=== PATIENT | female | born 1975 | race Caucasian/White ===

== ENCOUNTER → 2021-08-05 14:07 | Outpatient (BNVA) | payer BC, SELFPAY | PROVIDERS: Family Provider Nurse Practitioner Family; PCP Nurse Practitioner Family; Referring Provider Nurse Practitioner Family; Visit Provider Specialist | DX: M25.561 Pain in right knee (principal) | CPT/HCPCS: 73560; 73565 ==

== ENCOUNTER 2021-08-05 15:20 | Outpatient (CLI) | payer BC, SELFPAY | END 2021-08-05 15:21 | disposition home or self-care (01) | LOC: SPT 15:20 | PROVIDERS: Family Provider Nurse Practitioner Family; PCP Nurse Practitioner Family; Visit Provider Specialist | DX: Z46.89 Encounter for fitting and adjustment of other specified devices (principal); M25.561 Pain in right knee | CPT/HCPCS: 97760; L1812 ==

== ENCOUNTER 2022-07-16 07:03 | Outpatient (CLI) | payer OTHER, SELFPAY ==
--- NOTE | 2022-07-16 07:21 | MR_ITS ---
WS: [id number] MRI LUMBAR SPINE NONCONTRAST TECHNIQUE: Sagittal T1, T2 and STIR imaging. Axial T1 and T2 imaging. CLINICAL INFORMATION: CHRONIC LOW BACK PAIN COMPARISON: None. FINDINGS: Mild lumbar curve. No acute compression. Slight anterolisthesis L4 on L5. Tarlov cyst in the sacrum. L1-L2: Normal. L2-L3: Normal. L3-L4: Mild annular bulging with slight effacement of ventral thecal sac. Mild facet arthropathy. Spi nal canal and foramen are patent. L4-L5: Slight anterolisthesis. Mild disc bulging with osteophytic ridging. Moderate facet arthropathy ligamentum flavum hypertrophy. Moderate to severe central canal stenosis impinges the traversing L5 nerve roots bilaterally. Mild RIGHT foraminal narrowing. LEFT foramen is patent. L5-S1: Disc osteophyte complex with endplate ridging. Impingement traversing LEFT S1 nerve root. Fora men are patent. Mild facet arthropathy. Edema or small hemangioma in the RIGHT L5 pedicle. Mild central canal stenosis in the district sales manager imaging at C3-C5. MR/MR lumbar spine wo con* [id number] IMPRESSION: 1. Slight anterolisthesis L4 on L5. Moderate to severe central canal stenosis with mild disc bulging and osteophytic ridging. Moderate facet arthropathy with ligamentum flavum hypertrophy contribute to stenosis. 2. Mild RIGHT L4-L5 foraminal narrowing. 3. Mild annular bulging L3-L4. 4. Disc bulge L5-S1 impinges the traversing LEFT S1 nerve root in the subartic ular recess. 5. Mild central canal stenosis in the mid cervical spine on the district sales manager imaging.
== END 2022-07-16 07:04 | disposition home or self-care (01) ==
LOC: RAD 07:04
PROVIDERS: Family Provider Nurse Practitioner Family; PCP Nurse Practitioner Family; Visit Provider Nurse Practitioner Family
DX: G89.29 Other chronic pain (principal); M48.02 Spinal stenosis, cervical region; M51.27 Other intervertebral disc displacement, lumbosacral region; M51.26 Other intervertebral disc displacement, lumbar region; M48.061 Spinal stenosis, lumbar region without neurogenic claudication
CPT/HCPCS: 72148

== ENCOUNTER 2022-09-19 09:26 | Day surgery (SDC) | payer OTHER, SELFPAY ==
[2022-09-16 09:20] VITALS: BMI 31.1
--- NOTE | 2022-09-16 09:45 | P.ANESASSM_ITS ---
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) Anesthetic Plan ASA status: 3 Anesthesia: General Risk of > 500 ml blood loss (7ml/kg in children): No Medications/Allergies Home Medications Medication Instructions Recorded Confirmed Last Taken Type azelastine 137 mcg (0.1 %) nasal 1 spray intranasal BID 12/17/20 09/16/22 09/16/22 History spray aerosol fluticasone propionate 50 1 spray intranasal DAILY 12/17/20 09/16/22 09/16/22 History mcg/actuation nasal spray,suspension levocetirizine 5 mg tablet (Xyzal) 5 mg PO .twice daily 12/17/20 09/16/22 09/16/22 History hinged knee brace #1 ea 08/05/21 09/02/22 Unknown Rx cholecalciferol (vitamin D3) 125 125 mcg PO DAILY 09/16/22 09/16/22 09/16/22 History mcg (5,000 unit) tablet (Vitamin D3) cranberry 400 mg capsule 400 mg PO DAILY 09/16/22 09/16/22 09/16/22 History elderberry fruit 200 mg capsule 200 mg PO DAILY 09/16/22 09/16/22 09/16/22 History esomeprazole magnesium 40 mg 40 mg PO DAILY 09/16/22 09/16/22 09/16/22 History capsule,delayed release (Nexium) glucosamine sulfate 500 mg tablet 500 mg PO DAILY 09/16/22 09/16/22 09/16/22 History (Glucosamine) meloxicam 15 mg tablet 15 mg PO DAILY 09/16/22 09/16/22 09/11/22 History omega 2-owf-glt-fish oil 1,000 mg 1 cap PO DAILY 09/16/22 09/16/22 09/12/22 History (120 mg-180 mg) capsule (Fish Oil) sertraline 25 mg tablet 25 mg PO DAILY 09/16/22 09/16/22 09/16/22 History Allergies Allergy/AdvReac Type Severity Reaction Status Date / Time acetaminophen [From Vicodin] Allergy ADR-Headach Verified 09/02/22 16:15 e cephalexin [From Keflex] Allergy Unknown Verified 09/02/22 15:23 doxycycline Allergy unknown Verified 09/02/22 15:23 hydrocodone [From Vicodin] Allergy ADR-Headach Verified 09/02/22 16:15 e tramadol [From Ultram] Allergy unknown Verified 09/02/22 15:23 [facility] Anesthesia Medical History (Updated 09/02/22 @ 17:23 by Alban Mccord DO) Environmental allergies Social History Smoking and tobacco status: never smoked Data Anesthesia Cardiac Studies: No Data to Display
[2022-09-19] VITALS (10 sets, daily range): BP systolic 117–158; BP diastolic 76–93; PULSE 82–108; RESP 13–19; TEMP 36.3–36.6; O2SAT 93–100
--- NOTE | 2022-09-19 | XR_ITS ---
WS: [id number] Lumbar spine, C-arm fluoroscopy, 09/19/2022 Clinical Data: Left sided L3-4, L4-5, L5-S1 decompression Comparison: None. Findings: Dr. Mccord performed a lumbar decompression XR/XR lumbar spine 1V [id number] Impression: Lumbar decompression.
--- NOTE | 2022-09-19 09:44 | P.ANESUD_ITS ---
Pre-Anesthetic Update Pre-Anesthetic Assessment: Date of Surgery/Procedure: 09/19/22 Preop Jeana gnosis: Stenosis with neurogenic claudication Proposed Procedure: Operation Date: 09/19/22 10:50 Proposed Procedures p Lumbar Spine Decompression L3/4 L4/5 L5/S1 M48.062Dr. Mccord to stand on LEFT(Not Applicable) - Alban Mccord, DO Any changes to Pre-Anesthetic Assessment?: No Last Intake: > 8hrs Exam: Pre-Anes Outpt Exam: alert, oriented x 3, clear to auscultation bilaterally and regular rate & rhythm Cardiac Studies: No Data to Display
[2022-09-19] MEDS: sodium chloride 0.9% 1,000 ML 30 ML IV (09:57)
[2022-09-19] MEDS: midazolam 1 mg/mL INJ 2 mL 2 MG IVP (10:57)
--- NOTE | 2022-09-19 10:58 | W.PM.OPSUD ---
Surgery/Procedure H&P Update DATE OF PROCEDURE: September 19, 2022 DATE H&P PERFORMED: 09/02/22 H&P UPDATE INFORMATION: I have reviewed H&P completed within last 30 days, I have examined patient prior to procedure and No changes to prior documentation PREOP DIAGNOSIS: Stenosis with neurogenic claudication PLANNED PROCEDURE: Operation Date: 09/19/22 10:50 Proposed Procedures p Lumbar Spine Decompression L3/4 L4/5 L5/S1 M48.062Dr. Mccord to stand on LEFT(Not Applicable) - Alban Mccord DO
[2022-09-19] MEDS: clindamycin 900 MG/50 ML PREMIX 100 MG IV (11:17)
[2022-09-19] MEDS: fentaNYL 50 mcg/mL INJ 2mL IVP (13:23)
--- NOTE | 2022-09-19 13:59 | P.OP_ITS ---
Operative Report Date of procedure: September 19, 2022 Pre-op diagnosis: Preop Diagnosis Stenosis with neurogenic claudication Post-op diagnosis: same Procedure done: 1. L3/4 laminectomy with partial facetectomy 2. L4/5 Laminectomy with partial facetectomy 3. L5/S1 laminectomy with partial facetectomy Surgeon: Alban Mccord Estimated blood loss (mL): 10 Procedure: 1. L3/4 laminectomy with partial facetectomy 2. L4/5 Laminectomy with partial facetectomy 3. L5/S1 laminectomy with partial facetectomy Patient is brought to the operative suite. After undergoing anesthesia they are placed in the prone position. All areas of impingement are well padded. Patient is then prepped and draped in the normal sterile fashion. A skin incision is made over the L3/4 level. This is confirmed under c-arm jong dance. A series of dilators are passed and the tubular retractor is docked on the L3 lamina. A bovie is used to clear the soft tissue off the lamina and the L 3/4 facet joint. A high speed zenaida is then used to perform the laminectomy and take down the medial aspect of the L 3/4 facet joint. A kerrison rongeure was then used to take down the remaining lamina and smooth the edged of the laminectomy up to the point where the ligamentum flavum attaches. Attention was then brought to the medial aspect of the facet joint. The remaining medial aspect of the superior and inferior aspect of the facet joint were taken down with the kerrison from the pedicle of L3 to L 4. The facet joint had significant hypertrophy. Attention was then brought to the Ligamentum Flavum. The ligament was taken do wn from the lamina of L3 to L4 and out medially to the remaining facet joint. The ligament was thick. The dura was then exposed. The dura was in good repair. The L3 nerve was then traced with a curette out the L3/4 foramen and found to be adequately decompressed. The L4 nerve was traced with a curette around the L4 pedicle. The lateral recess was opened with a kerrison helping to further dec ompress the L4 nerve. The tubular retractor was then tilted to the contralateral side. The bovie was used to take down the soft tissue on the spinous process. The high speed zenaida was used to take down the spinous process and then the contralateral lamina of L3. The kerrison rongeur was used to take down the remaining lamina to the point where the ligamentum flavum attached and the ligamentum flavum was taken down from L3 to L4. The kerrison rongeur was then used to reach across and take down the medial aspect of the contralateral L3/4 facet joint.The currete was used to trace the contralateral L3 nerve out the L3/4 foramen to make sure it was decompressed adequatesly and the L4 was traced around the L4 pedicle. The lateral recess was opened further with the kerrison to ensure the L4 is adequately decompressed. A skin incision is made over the L4/5 level. This is confirmed under c-arm guidance. A series of dilators are passed and the tubular retractor is docked on the L4 lamina. A bovie is used to clear the soft tissue off the lamina and the L 4/5 facet joint. A high speed zenaida is then used to perform the laminectomy and take down the medial aspect of the L 4/5 facet joint. A kerrison rongeure was then used to take down the remaining lamina and smooth the edged of the laminectomy up to the point where the ligamentum flavum attaches. Attention was then brought to the medial aspect of the facet joint. The remaining medial aspect of the superior and inferior aspect of the facet joint were taken down with the kerrison from the pedicle of L4 to L 5. The facet joint had significant hypertrophy. Attention was then brought to the Ligamentum Flavum. The ligament was taken down from the lamina of L4 to L5 and out medially to the remaining facet joint. The ligament was thick. The dura was then exposed. The dura was in good repair. The L4 nerve was then traced with a curette out the L4/5 foramen and found to be adequately decompressed. The L5 nerve was traced with a curette around the L5 pedicle. The lateral recess was opened with a kerrison helping to further decompress the L5 nerve. The tubular retractor was then tilted to the contralateral side. The bovie was used to take down the soft tissue on the spinous process. The high speed zenaida was used to take down the spinous process and then the contralateral lamina of L4/5. The kerrison rongeur was used to take down the remaining lamina to the point where the ligamentum flavum attached and the ligamentum flavum was taken down from L5 to S1. The kerrison rongeur was then used to reach across and take down the medial aspect of the contralateral L4/5 facet joint.The currete was used to trace the contralateral L4 nerve out the L4/5 foramen to make sure it was decompressed adequatesly and the L was traced around the L5 pedicle. The lateral recess was opened further with the kerrison to ensure the L5 is adequately decompressed. A skin incision is made over the L5/S1 level. This is confirmed under c-arm guidance. A series of dilators are passed and the tubular retractor is docked on the L5 lamina. A bovie is used to clear the soft tissue off the lamina and the L 5/S1 facet joint. A high speed zenaida is then used to perform the laminectomy and take down the medial aspect of the L 5/S1 facet joint. A kerrison rongeure was then used to take down the remaining lamina and smooth the edged of the laminectomy up to the point where the ligamentum flavum attaches. Attention was then brought to the medial aspect of the facet joint. The remaining medial aspect of the superior and inferior aspect of the facet joint were taken down with the kerrison from the pedicle of L5 to S1. The facet joint had significant hypertrophy. Attention was then brought to the Ligamentum Flavum. The ligament was taken down from the lamina of L5 to S1 and out medially to the remaining facet joint. The ligament was thick. The dura was then exposed. The dura was in good repair. The L5 nerve was then traced with a curette out the L5/S1 foramen and found to be adequately decompressed. The S1 nerve was traced with a curette around the S1 pedicle. The lateral recess was opened with a kerrison helping to further decompress the S1 nerve. The tubular retractor was then tilted to the contralateral side. The bovie was used to take down the soft tissue on the spinous process. The high speed zenaida was used to take down the spinous process and then the contralateral lamina of L5. The kerrison rongeur was used to take down the remaining lamina to the point where the ligamentum flavum attached and the ligamentum flavum was taken down from L5 to S1. The kerrison rongeur was then used to reach across and take down the medial aspect of the contralateral L5/S1 facet joint.The currete was used to trace the contralateral L5 nerve out the L5/S1 foramen to make sure it was decompressed adequatesly and the S1 was traced around the S1 pedicle. The lateral recess was opened further with the kerrison to ensure the S1 is adequately decompressed. Wound is then irrigated copiously with saline and surgiflo is used to stop any bleeding. The tubular retractor is removed and the wound is closed with vicryl and monocryl suture. Glue is then used to protect the wound. A sterile dressing is then placed. Patient was then placed in the supine position and transferred to the PACU in stable condition.
[2022-09-19] MEDS: oxyCODONE-APAP 5-325 mg Tablet PO (14:04)
[2022-09-19] MEDS: ondansetron 2 mg/ML SDV 2 mL 4 MG IVP (14:31)
--- NOTE | 2022-09-19 14:39 | ANE.PACU2 ---
Inpatient post-anesthesia follow up: Airway intact: Yes Vital signs: Temperature 97.8 F Pulse Rate 85 Respiratory Rate 16 Blood Pressure 138/93 Pulse Oximetry 94 Oxygen Delivery Me thod Room Air Oxygen Flow Rate 10 Fraction of Inspir ed Oxygen Hydration adequate: Yes Nausea and vomiting: No Pain level: 1 Mental status: Baseline
== END 2022-09-19 15:00 | disposition home or self-care (01) ==
PROVIDERS: PCP Nurse Practitioner Family; Visit Provider Orthopaedic Surgery
PROC: (CPT 63005; principal; 2022-09-19 10:40)
DX: M48.062 Spinal stenosis, lumbar region with neurogenic claudication (principal); K21.9 Gastro-esophageal reflux disease without esophagitis; Z86.73 Personal history of transient ischemic attack (TIA), and cerebral infarction without residual deficits
CPT/HCPCS: 63047; 63048 ×2; 72020; 76000; J1100; J2250; J2405; J2704; J2710; J3010; J3490; J7030

== ENCOUNTER → 2022-10-09 09:13 | Outpatient (BNVA) | payer OTHER, SELFPAY | PROVIDERS: PCP Nurse Practitioner Family; Visit Provider Physician Assistant | DX: M48.061 Spinal stenosis, lumbar region without neurogenic claudication (principal); M48.07 Spinal stenosis, lumbosacral region; M47.816 Spondylosis without myelopathy or radiculopathy, lumbar region; S33.140A Subluxation of L4/L5 lumbar vertebra, initial encounter; X58.XXXA Exposure to other specified factors, initial encounter | CPT/HCPCS: 72110 ==

== ENCOUNTER 2022-10-14 09:43 | Outpatient (CLI) | payer OTHER, SELFPAY ==
--- NOTE | 2022-10-14 10:15 | MR_ITS ---
WS: [id number] MRI LUMBAR SPINE NONCONTRAST HISTORY: post op pain, surgery 3 weeks ago. COMPARISON: 07/16/2022 TECHNIQUE: Sagittal and axial multisequence imaging is submitted. Mild degenerative changes in the cervical spine. Increase in thoracic kyphosis. No change in the 2 mm anterolisthesis of L4. Disc spaces are preserved with only mild desiccation. Conus terminates normally at L1. New postsurgical soft tissue changes are noted at L3-4, L4-5 and L5-S1. Soft tissue changes are noted on the LEFT from prior laminectomies and partial facetectomies. L1-L2: Normal. L2-L3: Normal. L3-L4: Mild disc bulging with effacement of the ventral thecal sac. Mild facet arthritis. Small LEFT hemilaminectomy defect. L4-L5: Moderate annular disc bulging. Postoperative LEFT hemilaminectomy defect. Partial resolution o f the central stenosis due to laminectomy defect. New increased fluid in the facet joints bilaterally and postoperative edema along the facetectomy site. There is mild central and subarticular recess en croachment. L5-S1: Diffuse annular disc bulging. Osteophytic ridging. Disc protrusion LEFT paracentral encroaches on the LEFT S1 nerve root. Similar to the prior study. Recent postoperative LEFT hemilaminectomy def ect with partial facetectomy. Increased T2 signal in the nerve roots posterior to L5. Indistinctness and thickening of the nerve ro ots. 3 mm area of decreased signal on the T1 and T2 sequences along the surgical tract at L5-S1. Very low signal on the T1 sequences. Unknown etiology. Small amount of edema in the soft tissues along the posterior lumbar region. No focal collection. Sac ral Tarlov cyst at S2. MR/MR lumbar spine wo con* [id number] IMPRESSION: 1. Since the prior examination of 07/16/2022 patient has undergone LEFT hemila minectomies at L3-4, L4-5 and L5-S1 with partial facetectomy' s. Postoperative changes appear appropriate. This study was performed without IV contrast. 2. Partial resolution of the stenosis at L4-5 due to the surgical changes. 3. Increased T2 signal involving the nerve roots posterior to L5. Consistent w ith radiculitis.
== END 2022-10-14 09:44 | disposition home or self-care (01) ==
LOC: RAD 09:46
PROVIDERS: PCP Nurse Practitioner Family; Visit Provider Physician Assistant
DX: Z98.890 Other specified postprocedural states (principal); M48.061 Spinal stenosis, lumbar region without neurogenic claudication; M54.50 Low back pain, unspecified
CPT/HCPCS: 72148

== ENCOUNTER → 2022-11-25 10:46 | Outpatient (BNVA) | payer OTHER, SELFPAY | PROVIDERS: PCP Registered Nurse; Visit Provider Registered Nurse | DX: R60.0 Localized edema (principal) | CPT/HCPCS: 80053; 83880 ==

== ENCOUNTER 2022-12-03 13:59 | Inpatient (IN) | payer OTHER, SELFPAY ==
[2022-11-27 10:32] VITALS: BMI 31.6
--- NOTE | 2022-11-27 10:57 | ANES.PREANE2 ---
Pre-Anesthetic Assessment Height/Weight: Height 1.7 m Weight 91.626 kg Preop Diagnosis: Stenosis with neurogenic claudication Operation Date: 12/03/22 10:00 Proposed Procedures p Spinal Fusion:L3-S1 fusion w decompession of RT Side/[id number],38383,89375,M48.062(Right) - Alban Mccord DO s Lumbar Spine Decompression(Right) - Alban Mccord DO Familial anesthetic complications: None Social Tobacco and No alcohol Exam alert, oriented x 3, clear to auscultation bilaterally and regular rate & rhythm Airway Mallampati: Class III Dentition: other (missing) Pulmonary None reported CV/HEM None reported None reported Hepatic None reported GI None reported Musc/skel Osteoarthritis/DJD Neuropsych Cerebrovascular Accident ((hormone + tobacco) - No residual deficits) Anesthetic Plan ASA status: 2 Anesthesia: General Other: A-line Risk of > 500 ml blood loss (7ml/kg in children): Yes, adequate IV access and fluids planned Medications/Allergies Home Medications Medication Instructions Recorded Confirmed Last Taken Type azelastine 137 mcg (0.1 %) nasal 1 spray intranasal BID 12/17/20 11/27/22 1 Day Ago History spray aerosol ~11/26/22 fluticasone propionate 50 1 spray intranasal DAILY 12/17/20 11/27/22 1 Day Ago History mcg/actuation nasal ~11/26/22 spray,suspension levocetirizine 5 mg tablet (Xyzal) 5 mg PO .twice daily 12/17/20 11/27/22 1 Day Ago History ~11/26/22 hinged knee brace #1 ea 08/05/21 11/25/22 Unknown Rx cholecalciferol (vitamin D3) 125 125 mcg PO DAILY 09/16/22 11/27/22 1 Day Ago History mcg (5,000 unit) tablet (Vitamin ~11/26/22 D3) cranberry 400 mg capsule 400 mg PO DAILY 09/16/22 11/27/22 1 Day Ago History ~11/26/22 elderberry fruit 200 mg capsule 200 mg PO DAILY 09/16/22 11/27/22 1 Day Ago History ~11/26/22 esomeprazole magnesium 40 mg 40 mg PO DAILY 09/16/22 11/27/22 1 Day Ago History capsule,delayed release (Nexium) ~11/26/22 glucosamine sulfate 500 mg tablet 500 mg PO DAILY 09/16/22 11/27/22 1 Day Ago History (Glucosamine) ~11/26/22 meloxicam 15 mg tablet 15 mg PO DAILY 09/16/22 11/27/22 1 Day Ago History ~11/26/22 omega 1-smf-wql-fish oil 1,000 mg 1 cap PO DAILY 09/16/22 11/27/22 1 Month Ago History (120 mg-180 mg) capsule (Fish Oil) ~10/27/22 sertraline 25 mg tablet 25 mg PO DAILY 09/16/22 11/27/22 1 Day Ago History ~11/26/22 gabapentin 300 mg tablet 300 mg PO TID 09/19/22 11/27/22 1 Day Ago History ~11/26/22 oxycodone-acetaminophen 5 mg-325 1 tab PO Q4H PRN pain 7 days #40 11/06/22 11/27/22 1 Day Ago Rx mg tablet (Percocet) tabs ~11/26/22 Bone Growth Stimulator E0748 #1 ea 11/20/22 11/25/22 Unknown Rx Intraoperative Neuromonitoring #1 ea 11/20/22 11/25/22 Unknown Rx oxycodone 10 mg tablet 10 mg PO Q6H PRN pain 7 days #40 11/20/22 11/27/22 1 Day Ago Rx tabs ~11/26/22 furosemide 20 mg tablet (Lasix) 10 mg PO DAILY 30 days #15 tabs 11/25/22 11/27/22 1 Day Ago Rx ~11/26/22 potassium chloride 8 mEq 8 meq PO DAILY 30 days #30 tabs 11/25/22 11/27/22 1 Day Ago Rx tablet,extended release (Klor-Con) ~11/26/22 Allergies Allergy/AdvReac Type Severity Reaction Status Date / Time acetaminophen [From Vicodin] Allergy ADR-Headach Verified 11/27/22 10:23 e cephalexin [From Keflex] Allergy Unknown Verified 11/27/22 10:23 doxycycline Allergy unknown Verified 11/27/22 10:23 hydrocodone [From Vicodin] Allergy ADR-Headach Verified 11/27/22 10:23 e tramadol [From Ultram] Allergy unknown Verified 11/27/22 10:23 PFSH Anesthesia Medical History Environmental allergies Family History Grandmother Dementia Cancer lung Father Hypertension Grandmother Hypertension Denies family history of Diabetes CAD (coronary artery disease) Chronic kidney disease (CKD) Lung disease Stroke Social History (Updated 11/25/22 @ 10:15 by Nichole Cameron LPN) Smoking and tobacco status: current every day smoker cigarettes Packs smoked per day: 1 Alcohol intake: never Substance/Drug Use: never Adopted: No Caregiver/support person: No Lives independently: No Household members: spouse Marital status: service: No Current occupational status: unemployed and disabled Sexually active: Yes Current gender identity: Female Data Anesthesia Cardiac Studies: No Data to Display
[2022-12-03] VITALS (33 sets, daily range): BP systolic 89–133; BP diastolic 59–92; PULSE 85–108; RESP 16–18; TEMP 36.1–36.6; O2SAT 89–98; BMI 33.7
--- NOTE | 2022-12-03 | XR_ITS ---
WS: [id number] XR lumbar spine 1V [id number] REASON FOR EXAM: OR PICS FINDINGS: Intraoperative lumbar spine images Posterior decompression with posterior pedicle screw placement at L2-S1 with oblique pelvic screws at S2. Interbody fusion devices at L4-L5 and L5-S1. Surgical appliances are in proper position and alignment. XR/XR lumbar spine 1V [id number] IMPRESSION: Posterior lumbar fusion without abnormality as above.
[2022-12-03] MEDS: sodium chloride 0.9% 1,000 ML 30 ML IV (09:06)
[2022-12-03] MEDS: midazolam 1 mg/mL INJ 2 mL 2 MG IVP (09:15)
--- NOTE | 2022-12-03 09:23 | PM.HP ---
Providers/Chief Complaint Primary Care Provider: RITA Delgado Chief Complaint: T4-O0-snquip w decompression of the RT side [id number], History of Present Illness Princess Tobar is a 47 year old female She rates her pain 7/10 today with pain to her low back and travels into the posterior legs and feet with the left being worse today. Her pain is aggravated by standing or sitting for long periods,alleviated by laying on her left side. She does note improvement to her sleep patters since her last visit. She also describes pain with activity of daily living including light housekeeping. She has been taking meloxicam without any relief.? L3/4 L4/5 L5/S1 laminectomoty with partial facetectomy. DOS: 09/19/22 She is 5 weeks out from her surgery. She states the first 2 weeks following her surgery she had some relief and feels she is significantly worse. Review of Systems Const: Denies: fever(s) or fatigue Card: Denies: palpitations, edema, lightheadedness, syncope, pre-syncope, dyspnea on exertion or orthopnea Resp: Denies: dyspnea, productive cough, non-productive cough or wheezing GI: Denies: nausea, early satiety, hematochezia or melena : Denies: dysuria or nocturia Neuro: Denies: headache(s), dizziness, confusion or Slurred speech present Medications/Allergies Home Medications Medication Instructions Recorded Confirmed Last Taken Type azelastine 137 mcg (0.1 %) nasal 1 spray intranasal BID 12/17/20 11/27/22 12/02/22 History spray aerosol fluticasone propionate 50 1 spray intranasal DAILY 12/17/20 11/27/22 12/02/22 History mcg/actuation nasal spray,suspension levocetirizine 5 mg tablet (Xyzal) 5 mg PO .twice daily 12/17/20 11/27/22 12/03/22 History hinged knee brace #1 ea 08/05/21 11/25/22 Unknown Rx cholecalciferol (vitamin D3) 125 125 mcg PO DAILY 09/16/22 11/27/22 12/02/22 History mcg (5,000 unit) tablet (Vitamin D3) cranberry 400 mg capsule 400 mg PO DAILY 09/16/22 11/27/22 12/01/22 History elderberry fruit 200 mg capsule 200 mg PO DAILY 09/16/22 11/27/22 12/01/22 History esomeprazole magnesium 40 mg 40 mg PO DAILY 09/16/22 11/27/22 12/03/22 History capsule,delayed release (Nexium) glucosamine sulfate 500 mg tablet 500 mg PO DAILY 09/16/22 11/27/22 12/01/22 History (Glucosamine) meloxicam 15 mg tablet 15 mg PO DAILY 09/16/22 11/27/22 1 Day Ago History ~11/26/22 omega 1-rkw-gbm-fish oil 1,000 mg 1 cap PO DAILY 09/16/22 11/27/22 1 Month Ago History (120 mg-180 mg) capsule (Fish Oil) ~10/27/22 sertraline 25 mg tablet 25 mg PO DAILY 09/16/22 11/27/22 12/03/22 History gabapentin 300 mg tablet 300 mg PO TID 09/19/22 11/27/22 12/03/22 History oxycodone-acetaminophen 5 mg-325 1 tab PO Q4H PRN pain 7 days #40 11/06/22 11/27/22 1 Day Ago Rx mg tablet (Percocet) tabs ~11/26/22 Bone Growth Stimulator [id number] #1 ea 11/20/22 11/25/22 Unknown Rx Intraoperative Neuromonitoring #1 ea 11/20/22 11/25/22 Unknown Rx oxycodone 10 mg tablet 10 mg PO Q6H PRN pain 7 days #40 11/20/22 11/27/22 12/03/22 Rx tabs furosemide 20 mg tablet (Lasix) 10 mg PO DAILY 30 days #15 tabs 11/25/22 11/27/22 11/04/22 Rx potassium chloride 8 mEq 8 meq PO DAILY 30 days #30 tabs 11/25/22 11/27/22 12/03/22 Rx tablet,extended release (Klor-Con) Allergies Allergy/AdvReac Type Severity Reaction Status Date / Time cephalexin [From Keflex] Allergy Unknown Verified 11/27/22 10:23 doxycycline Allergy unknown Verified 11/27/22 10:23 hydrocodone [From Vicodin] Allergy ADR-Headach Verified 11/27/22 10:23 e tramadol [From Ultram] Allergy unknown Verified 11/27/22 10:23 PFSH Acute PFSH: Medical History Environmental allergies Family History Grandmother Dementia Cancer lung Father Hypertension Grandmother Hypertension Denies family history of Diabetes CAD (coronary artery disease) Chronic kidney disease (CKD) Lung disease Stroke Social History (Updated 11/25/22 @ 10:15 by Nichole Cameron LPN) Smoking and tobacco status: current every day smoker cigarettes Packs smoked per day: 1 Alcohol intake: never Adopted: No Caregiver/support person: No Lives independently: No Household members: spouse Marital status: service: No Current occupational status: unemployed and disabled Sexually active: Yes Current gender identity: Female Vitals/I&O/Wt Last Vital Signs Temp 97.8 F 12/03/22 09:02 Pulse 89 12/03/22 09:02 Resp 18 12/03/22 09:02 BP 120/87 12/03/22 09:02 Pulse Ox 95 12/03/22 09:02 O2 Del Method 12/03/22 09:02 Physical Exam Narrative: CONSTITUTIONAL: The patient is a normal appearing [] in no apparent distress. GENERAL: Patient in no acute distress. CARDIAC: Regular rate and rhythm. CHEST: Normal inspiratory effort, normal respiratory rate. ABDOMEN: Soft and nontender. SKIN: Clear, warm and intact. NEURO?PSYCH: The patient is alert and oriented to person, place and time. A&P Assessment and plan (1) Spondylolisthesis at L4-L5 level: L3-Pelvis fusion Attestations Medical Necessity Statement*: failed conservative tx Coding Level of Care Code Acute Code for Chg Fwd Diagnoses Spondylolisthesis at L4-L5 level M43.16
[2022-12-03] MEDS: clindamycin 900 MG/50 ML PREMIX 100 MG IV ×2 (10:00→18:22)
[2022-12-03] MEDS: vancomycin 1,000 MG SDV 1000 MG XX (10:36)
[2022-12-03] MEDS: heparin, porcine 1,000 unit/mL INJ 10 mL 10000 UNIT XX (10:36)
[2022-12-03] MEDS: lidocaine-epi 1% 20 mL INJ INJECTION (10:36)
[2022-12-03 12:12] LABS: ABG PCO2 42.8 mmHg (35-45); ABG PH Result 7.36 (7.35-7.45); Arterial Blood Gas Hematocrit 36.7 % (37-47); Base Excess ABG -1.4 mmol/L (-2.0-2.0); Blood Gas Allen Test Pos; Blood Gas Sample Type Arterial; Carboxyhemoglobin 7.7 %THgb (0.4-20.1); HCO3 ABG 24.1 mmol/L (22-26); HGB O2 Sat 91.4 % (95-100); Ionized Calcium Level - ABG 1.2 mmol/L (1.1-1.4); Methemoglobin 0.2 % (0.4-1.5); Oxygen Saturation ABG 99.3; Potassium Level - ABG 3.8 mmol/L (3.5-5.0)
[2022-12-03 12:14] LABS: Blood Gas Operator Identificat GLC
[2022-12-03 12:25] LABS: Hematocrit 37.5 % (37.0-47.0); Hemoglobin 11.9 g/dL (11.5-15.3)
--- NOTE | 2022-12-03 12:53 | P.ANESUD_ITS ---
Pre-Anesthetic Update Pre-Anesthetic Assessment: Date of Surgery/Procedure: 12/03/22 Preop Jeana gnosis: Spondylolisthesis L4-5, lumbar stenosis with neurogenic claudication Proposed Procedure: Operation Date: 12/03/22 10:00 Proposed Procedures p Spinal Fusion:L3-S1 fusion w decompession of RT Side/[id number],35661,63679,16859,M48.062(Right) - Alban Mccord, DO s Lumbar Spine Decompression(Right) - Albanbenja Mccord, DO Any changes to Pre-Anesthetic Assessment?: No Last Intake: Intake Last Liquid Date 12/02/22 Last Liquid Time 21:00 Last Solid Date 12/02/22 Last Solid Time 19:00 Labs Last 48hrs: Short CBC 12/03/22 Range/Units 11:50 Hgb 11.9 (11.5-15.3) g/dL Hct 37.5 (37.0-47.0) % ABG 12/03/22 11:51 Specimen Type Arterial Sample Site Not Reportable ABG pH 7.36 ABG pCO2 42.8 ABG pO2 119.0 H ABG HCO3 24.1 ABG O2 Saturation 99.3 ABG Base Excess -1.4 A-a O2 Gradient Not Reportable O2 Delivery Device Not Reportable Vitals: Temperature 97.8 F 12/03/22 09:02 Temperature Source Temporal Artery S can 12/03/22 09:02 Pulse Rate 89 12/03/22 09:02 Respiratory Rate 18 12/03/22 09:02 Blood Pressure 120/87 12/03/22 09:02 Blood Pressure Radha n 98 12/03/22 09:02 Pulse Oximetry 95 12/03/22 09:02 Oxygen Delivery Me thod 12/03/22 09:02 Exam: Pre-Anes Outpt Exam: alert, oriented x 3, clear to auscultation bilaterally and regular rate & rhythm Cardiac Studies: No Data to Display
--- NOTE | 2022-12-03 13:50 | PM.OP ---
Operative Report Date of procedure: December 03, 2022 Pre-op diagnosis: Preop Diagnosis Spondylolisthesis L4-5, lumbar stenosis with neurogenic claudication Post-op diagnosis: same Procedure done: 1. L4/5 Interbody fusion with posterolateral fusion 2. L5/S1 Interbody fusion 3. Instrumentation L3-S1 posterior 4. lumbo pelvic fixation 5. Right open SI Joint fusion 6. Left open SI joint fusion 7. Cage at L4/5 8. Cage at L5/S1 9. L4/5 laminectomy with facetectomy 10. L5/S1 laminectomy with partial facetectomy 11. Use of computer navigation / Stereotactic 12 Bone marrow aspirate right iliac crest from separate incision 13. Use of autograft from same incision 14. Allograft Surgeon: Alban Mccord Manager Market Intelligence: Isauro Sanford Manager Market Intelligence: The surgical resident, Isauro Sanford, PAC was needed for his expertise under the microscope. He was important and necessary throughout the procedure to complete in a safe and timely manner. He assisted with patient positioning prepping and draping tissue retraction suctioning of the operative field protection of the dural sac and tissue closure Estimated blood loss (mL): 1,400 Procedure: 1. L4/5 Interbody fusion with posterolateral fusion 2. L5/S1 Interbody fusion 3. Instrumentation L3-S1 posterior 4. lumbo pelvic fixation 5. Right open SI Joint fusion 6. Left open SI joint fusion 7. Cage at L4/5 8. Cage at L5/S1 9. L4/5 laminectomy with facetectomy 10. L5/S1 laminectomy 1 chronic new carpet walking on bare feet smell unable partial facetectomy 11. Use of computer navigation / Stereotactic 12 Bone marrow aspirate right iliac crest from separate incision 13. Use of autograft from same incision 14. Allograft Patient is brought to the operative suite. After undergoing anesthesia, the patient had neuro monitoring attached. Patient was then placed in the prone position on the Víctor table. All areas of impingement were well-padded. Patient was then prepped and draped in the normal sterile fashion. Skin incision was then made over the L3 to sacrum. Subperiosteal dissection was made out to the transverse processes of L3 and L4 and L5 and the sacral ala. [employer] bone marrow aspirate kit was used to aspirate bone marrow aspirate from the right iliac crest. This was done by using the sharp probe to open up the bone. Aspiration was performed and then the blunt probe was then used to dissect down to through the bone tunnel. An aspirating well drawn back a millimeter approximately 20 cc of bone marrow aspirate was used. Admixed with the allograft and autograft bone that will be used. Next attention was brought to obtaining the placement of the computer navigation fiducial. This was done by placing tube pins into the iliac crest. These pins were later removed at the end of the case. The fiducial was attached to these 2 pins. The C-arm was brought in and the C-arm was spun around the patient. The information from the C-arm was then loaded in the computer in order to facilitate using computer navigation for placement of pedicle screws and iliac screws. Next attention was brought to placing the pedicle screws. The technique for placing the pedicle screws was to use a drill followed by the gearshift probe linked to the computer navigation. Followed by the ball probe to feel the superior inferior medial lateral jordan of the pedicles. Then placement of the screws using computer navigation. Was done at each pedicle. Screws were placed at L3 bilaterally and L4 bilaterally and L5 bilaterally and S1 bilaterally. Next attention was brought to placing the iliac screws. This was done again using the gearshift probe linked to get computer navigation. The iliac screw was started at the sacrum through the ala through the SI joint and into the pelvis. Next the pedicle feeler was used followed by the tap that was linked to computer navigation and then an 80 mm screw 9.5 mm diameter was placed this was done bilaterally. Next attention was brought to performing the open sacroiliac fusion. This was done by identifying the SI joint. A pin was placed into the SI joint. And then a tissue protector was placed and then the SI joint was drilled directly. Next the ostial amp bone graft was packed into the SI joint. This was done on both the right and the left side. Next attention was brought to performing the laminectomy ofL4. This was done using the high-speed bur Kerrisons and curettes. Once the lamina was removed and then attention was brought to performing a partial facetectomy on the contralateral side. This was done again using the high-speed bur curettes and Kerrisons. The ligamentum flavum was taken down bilaterally from L4 to L5. Attention was then brought to the facet on the ipsilateral side. The facet was taken down. The L5 nerve was decompressed as it passed around the L5 pedicle. The laminectomy was done for purposes of decompressing the nerve as well as placement of the cage. The L4 nerve was identified as it traversed through the L4/5 foramen. The thecal sac was identified and retracted. The L4/5 disc base was identified. Using a knife the disc base was opened. And then sequential hawa were placed. The first shaver was a 6 and the last shaver was a 8. Using a pituitary and down going curette the endplates were scraped and disc material was removed from the space. Once adequate decompression of the disc base was felt to be had. Osteoamp sponge was packed into the anterior aspect of the disc base. Then a size 9 cage from [employer] was placed after packing osteoamp into the cage. While placing the cage the thecal sac and L5 nerve was protected. C arm was used to ensure that the cages placed in the appropriate position. Next attention was brought to performing the laminectomy ofL5. This was done using the high-speed bur Kerrisons and curettes. Once the lamina was removed and then attention was brought to performing a partial facetectomy on the contralateral side. This was done again using the high-speed bur curettes and Kerrisons. The ligamentum flavum was taken down bilaterally from L5 to S1. Attention was then brought to the facet on the ipsilateral side. The facet was taken down. The S1 nerve was decompressed as it passed around the S1 pedicle. The laminectomy was done for purposes of decompressing the nerve as well as placement of the cage. The L5 nerve was identified as it traversed through the LL5/S1 foramen. The thecal sac was identified and retracted. The L5/S1 disc base was identified. Using a knife the disc base was opened. And then sequential hawa were placed. The first shaver was a 6 and the last shaver was a 9. Using a pituitary and down going curette the endplates were scraped and disc material was removed from the space. Once adequate decompression of the disc base was felt to be had. Osteoamp sponge was packed into the anterior aspect of the disc base. Then a size 9 cage from [employer] was placed after packing osteoamp into the cage. While placing the cage the thecal sac and S1 nerve was protected. C arm was used to ensure that the cages placed in the appropriate position. Attention was then brought to attaching the rods to the screws placed in the L3 bilaterally, L4 bilaterally L5 bilaterally and S1 bilaterally. And then attached to the iliac screws located to the pelvis bilaterally. Caps were torqued into position. Locking the construct in place. Wound was copiously irrigated and then attention was brought to decorticating the facets and transverse processes laterally. Bone that was taken down from the lamina was used along with osteoamp fibers and sponges were packed into the lateral gutters along the facet joints. This was done bilaterally. Wound was then closed in a layered fashion starting with the thoracolumbar fascia. 0-vicryl was used the sub cutaneous tissue was closed with 2-0 vicryl and skin with 4-0 monocryl. Glue was then used to seal the skin and a steril dressing was applied. Patient was then placed in the supine position. The endotracheal tube was removed and patient was transferred to the PACU in stable condition.
[2022-12-03] MEDS: HYDROmorphone 1 mg/mL INJ 1 mL 0.5 MG IVP (14:55)
--- NOTE | 2022-12-03 15:26 | ANE.PACU2 ---
Inpatient post-anesthesia follow up: Airway intact: Yes Vital signs: Temperature 97 F Pulse Rate 89 Respiratory Rate 16 Blood Pressure 101/74 Pulse Oximetry 93 Oxygen Delivery Me thod Simple Mask Oxygen Flow Rate 3 Fraction of Inspir ed Oxygen Hydration adequate: Yes Nausea and vomiting: No Pain level: 5 Mental status: Baseline
[2022-12-03] MEDS: ketorolac 30 mg/mL INJ IVP ×2 (15:53→22:10)
[2022-12-03] MEDS: gabapentin 300 mg Capsule PO ×2 (16:22→20:28)
[2022-12-03] MEDS: morphine 4 mg/mL SDV 1 mL 2 MG IVP ×2 (16:23→19:05)
[2022-12-03] MEDS: sodium chloride 0.9% 1,000 ML 100 ML IV (16:34)
[2022-12-03] MEDS: docusate sodium 100 mg Capsule PO (17:23)
[2022-12-03] MEDS: oxyCODONE-APAP 10-325 mg Tablet PO (17:23)
[2022-12-03] MEDS: lactated ringers 1,000 ML 90 ML IV (17:25)
[2022-12-03] MEDS: ALPRAZolam 0.5 mg Tablet PO (20:28)
[2022-12-03] MEDS: nicotine 21 mg Patch 1 PATCH TRANSDERMA (20:28)
[2022-12-03] MEDS: sodium chloride 0.9% 1,000 ML 999 ML IV (20:55)
[2022-12-03 21:24] LABS: Hematocrit 33.9 % (37.0-47.0); Hemoglobin 10.3 g/dL (11.5-15.3)
[2022-12-04] VITALS (13 sets, daily range): BP systolic 90–113; BP diastolic 51–73; PULSE 87–100; RESP 16–18; TEMP 36.4–36.6; O2SAT 93–97
[2022-12-04] MEDS: clindamycin 900 MG/50 ML PREMIX 100 MG IV ×2 (02:15→10:45)
[2022-12-04] MEDS: oxyCODONE-APAP 10-325 mg Tablet PO ×3 (02:16→13:28)
[2022-12-04] MEDS: ketorolac 30 mg/mL INJ IVP (04:51)
--- NOTE | 2022-12-04 07:00 | PM.PN ---
Subjective Subjective: POD 1 Patient sitting up in the chair in no apparent distress. Reports a lot of incisional bleeding through the night. Drain and Fischer catheter intact. Patient denies any chest pain, shortness of breath, headaches. Denies any lightheaded or dizziness. Vitals/I&O/Wt Last Vital Signs Temp 97.9 F 12/04/22 05:45 Pulse 93 12/04/22 05:45 Resp 16 12/04/22 05:45 BP 91/60 12/04/22 05:45 Pulse Ox 94 12/04/22 05:45 O2 Del Method 12/04/22 05:45 O2 Flow Rate 3 12/03/22 20:43 12/03/22 12/04/22 12/04/22 22:59 06:59 14:59 Intake Total 1807 / 4357 1290 / 5647 Output Total 295 / 1795 250 / 2045 Balance 1512 / 2562 1040 / 3602 Weight last 48 hrs Weight 215 lb 1.6 oz Physical Exam Narrative: Patient presents alert and oriented x3 with a good general appearance normal mood and affect. Normal coordination normal stability. Mild tenderness around the incisional site with the incision with evidence of bloody drainage. No signs of infection. Patient denies any fevers or chills. 5/5 motor strength both lower extremities with negative straight leg raise bilaterally. Calves are supple no medial thigh tenderness. Pulses are 2+ at the dorsalis pedis and posterior tibial region. Good capillary refill throughout normal sensation light touch both lower extremities. Urinary Catheter Management: Fischer: Cath Placed During This Visit: yes Reason for Continuing Indwelling Catheter: Required Immobilization for Trauma or Surgery or Anesthesia Urinary Catheter Date of Insertion: 12/03/22 Urinary Catheter Time of Insertion: 10:20 Data 12/03/22 21:13 A&P Assessment and plan (1) Status post lumbar spinal fusion: Dressings were changed at the bedside. Bloody drainage from the incisional site was evident. Hemovac drain was discontinued as it was not functioning only reported 45 mL out since surgery. New [place] dressing with ABD and compressive dressings were applied. We will discontinue Fischer catheter. Patient's blood pressure has been soft following a bolus of normal saline. Patient denies any chest pain. We will have physical therapy work with mobilization. Incentive spirometry for pulmonary toilet. I will recheck this afternoon to see if her status remained stable if so discharge home may be reasonable as the patient is wanting to be discharged today. I discussed with her no bending lifting or twisting activities. Continue to lay flat until physical therapy mobilizes to help tamponade any further bleeding from the lumbar incisional area. We will order an H&H. Attestations Medical Necessity Statement*: Possible discharge today if stable. Coding Level of Care Code Acute Code for Chg Fwd Diagnoses Status post lumbar spinal fusion Z98.1
[2022-12-04] MEDS: lactated ringers 1,000 ML 100 ML IV (07:21)
[2022-12-04 08:07] LABS: Hemoglobin 8.8 g/dL (11.5-15.3)
[2022-12-04] MEDS: docusate sodium 100 mg Capsule PO (10:23)
[2022-12-04] MEDS: fluticasone nasal spray 16gm Btl 1 SPRAY INTRANASAL (10:24)
[2022-12-04] MEDS: FUROsemide 20 mg Tablet 10 MG PO (10:24)
--- NOTE | 2022-12-04 10:25 | PC.CHAP ---
Pastoral Care Encounter/Spiritual Assessment Type of Contact [] Declined it project manager visit [] Patient/Family/Request visit [] Outpatient visit [] Follow-up visit [] Physician referral [] Code/Alert [x] Routine visit [] Staff referral [] Actively dying [] Patient sleeping [] Family support [] [] Out of room [] Palliative care [] [x] Receiving care in room [] Pre-surgical visit [] Trauma [] Long length of stay [] ICU visit [] Other: Relational/Emotional Strength [x] Patient feels connected with others/family/visitors/staff [] Distress [] Loneliness/isolation [] Abandonment Spirituality of Patient [x] Person of Hallie [] Attends Synagogue of their Hallie [x] Believes in Prayer [] Reads Bible or Congregation materials [] There are Spiritual issues to be addressed Fat Pressroom Worker Interventions [x] Prayer [x] Active listening [x] Non-anxious presence [x] Spiritual/emotional support [] Crisis/trauma care [x] Spiritual counseling [] Bereavement support [] Provided bereavement packet [] Provided Bible/devotional materials [] Provided toy/stuffed animal, coloring book to patient or family member [] Provided Communion [] Anointing/[place] [] Salvation [x] Completed spiritual assessment [] Other: Impact on Illness or Injury [] Angry [] Fearful [] Anxious [] Often cries [] Exhaustion [] Unable to work [] Unable to attend adventist [] Unable to walk/stand [] Unable to read [] Unable to drive [] Unable to eat/drink [] Unable to sleep [] Unable to be with family [] Patient intubated [] Other: Summary had fusion on back has a good attitude some rehab at home; well go home Time spent with patient 10 mins
[2022-12-04] MEDS: gabapentin 300 mg Capsule PO (10:26)
[2022-12-04] MEDS: nicotine 21 mg Patch 1 PATCH TRANSDERMA (10:27)
[2022-12-04] MEDS: pantoprazole DR 40 mg Tablet PO (10:33)
[2022-12-04] MEDS: sertraline 50 mg Tablet 25 MG PO (10:35)
--- NOTE | 2022-12-04 10:35 | PC.SOCIAL ---
Venkat CM spoke to patient and obtained choice of HOME for patients walker order, Order faxed to HOME
[2022-12-04] MEDS: oxyCODONE 20 mg ER (12 HR) Tablet PO (10:55)
== END 2022-12-04 13:45 | disposition home or self-care (01) | DRG 455 ==
LOC: MEDSURG 14:10
PROVIDERS: Anesthesiology; Internal Medicine; Physician Assistant; Admitting Provider Orthopaedic Surgery; PCP Nurse Practitioner Family; Visit Provider Orthopaedic Surgery
PROC: 0SG00AJ Fusion of Lumbar Vertebral Joint with Interbody Fusion Device, Posterior Approach, Anterior Column, Open Approach (ICD-10-PCS; principal; 2022-12-03 09:40)
PROC: 0SG00AJ Fusion of Lumbar Vertebral Joint with Interbody Fusion Device, Posterior Approach, Anterior Column, Open Approach (ICD-10-PCS; CPT 63005; 2022-12-03 09:40)
DX: M43.16 Spondylolisthesis, lumbar region (principal); F17.210 Nicotine dependence, cigarettes, uncomplicated
CPT/HCPCS: 36415; 51702; 72020; 76000; 80051; 82330; 82805; 85014; 85018; 86850; 86900; 97110; 97161; 97530; C1713; J1100; J1170; J1644; J1885; J2250; J2270; J2405; J2704; J2710; J3010; J3370; J3490; J7030; J7120; P9045

== ENCOUNTER 2022-12-05 14:43 | Emergency (ER) | payer OTHER, SELFPAY ==
[2022-12-05] VITALS (7 sets, daily range): BP systolic 98–125; BP diastolic 56–71; PULSE 110; RESP 18; TEMP 36.6; O2SAT 87–96
--- NOTE | 2022-12-05 16:02 | W.ED.WEAKNES ---
HPI - Weakness General: Chief complaint: Weakness Stated complaint: Bp Low, Bleeding from back surgery spot, pain Time Seen by Provider: 12/05/22 16:02 History of Present Illness: Ms. Tobar is a 47-year-old lady presenting to the emergency department for generalized illness. She reports back surgery with Dr. Mccord on 12/03 and has had bleeding from her wound since that time. She was discharged yesterday and has felt worse since being home. Density symptoms is moderate to severe. She notes lightheadedness and generalized malaise. She occasionally coughs. She denies fevers. No other specific changes in health, exacerbating, or alleviating factors identified. Onset (ago): day(s) Duration: progressively worsening Location: generalized Severity: moderate Relieving factors: none Exacerbating factors: exertion Context: recent surgery Review of Systems General: Reports: 10 or more systems reviewed and unremarkable except in HPI and below PFSH ED PFSH: Medical History Environmental allergies Family History Grandmother Dementia Cancer lung Father Hypertension Grandmother Hypertension Denies family history of Diabetes CAD (coronary artery disease) Chronic kidney disease (CKD) Lung disease Stroke Social History Smoking and tobacco status: current every day smoker cigarettes Packs smoked per day: 1 Alcohol intake: never Adopted: No Caregiver/support person: No Lives independently: No Household members: spouse Marital status: service: No Current occupational status: unemployed and disabled Sexually active: Yes Current gender identity: Female Physical Exam Const: COMMON NORMALS: alert GENERAL APPEARANCE: cooperative and well developed HENMT: COMMON NORMALS: normocephalic and atraumatic HEAD & SCALP: normocephalic and atraumatic Eye: COMMON NORMALS: conjunctivae normal CONJUNCTIVA: Yes conjunctivae normal Neck/C-Spine: COMMON NORMALS: supple GENERAL: Yes trachea midline Resp: EFFORT & INSPECTION: Yes able to speak in complete sentences OTHER: Occasional cough, mildly coarse breath sounds throughout Cardio: COMMON NORMALS: regular rate and regular rhythm RATE: regular rate RHYTHM: regular rhythm GI: COMMON NORMALS: Soft to palpation PALPATION: Yes Soft to palpation and No Tenderness to palpation present (GI) Back/Pelvis: OTHER: Dressing and brace in place, no obvious active hemorrhage. Appropriate tenderness. Extremity: GENERAL: Yes normal exam except as noted and No edema Neuro: COMMON NORMALS: moves all extremities SENSORIUM/ORIENTATION: Yes alert and No Orientation impaired Psych: COMMON NORMALS: mental status grossly normal and Normal thought process present THOUGHT PROCESS: Normal thought process present Course Vital Signs: Vital signs: Vital Signs Temperature 97.9 F 12/05/22 14:47 Pulse Rate 110 H 12/05/22 14:47 Respiratory Rate 18 12/05/22 14:47 Blood Pressure 125/68 12/05/22 19:00 Pulse Oximetry 87 L 12/05/22 18:01 Oxygen Delivery Me thod 12/05/22 14:47 MDM - Weakness Medical Decision Making 47-year-old lady presenting due to concern for low blood pressure and possible continued drainage from recent surgical site. Exam as above. There is no evidence of active bleeding. Patient is nontoxic. Exam otherwise as expected in postoperative state. Labs notable for stabilization of hemoglobin, likely mild dehydration on metabolic panel. Given clinical exam there is no indication for imaging at this time. Patient treated with fluids and analgesia with moderate improvement in symptoms. She is rather eager to be discharged. Satisfactory for outpatient management with close follow-up with operating surgeon. The results of ED evaluation were discussed with the patient including prescriptions and/or symptomatic cares (if applicable) including appropriate and responsible use, followup plan, and return precautions. The patient verbalized understanding and felt safe for discharge. Medical Records I reviewed the patient's medical records. Lab Data I reviewed the patient's lab results. 12/05/22 16:34 12/05/22 16:34 Laboratory Results WBC 10.2 10^3/uL (4.0-10.0) H 12/05/22 16:34 RBC 3.07 10^6/uL (4.1-5.3) L 12/05/22 16:34 Hgb 9.0 g/dL (11.5-15.3) L 12/05/22 16:34 Hct 28.1 % (37.0-47.0) L 12/05/22 16:34 MCV 91.5 fl (81-99) 12/05/22 16: MCH 29.3 pg (28.0-34.0) 12/05/22 16:34 MCHC 32.0 g/dL (30.0-36.0) 12/05/22 16:34 RDW 13.5 % (12.1-15.1) 12/05/22 16:34 Plt Count 163 10^3/cmm (130-400) 12/05/22 16:34 MPV 12.4 fL (7.4-10.4) H 12/05/22 16:34 Neut % (Auto) 63.6 % 12/05/22 16:34 Lymph % (Auto) 22.1 % 12/05/22 16:34 [place] % (Auto) 12.1 % 12/05/22 16:34 Eos % (Auto) 1.1 % 12/05/22 16:34 Baso % (Auto) 0.6 % 12/05/22 16:34 Neut # (Auto) 6.52 10^3/uL (1.8-7.7) 12/05/22 16:34 Lymph # (Auto) 2.3 10^3/uL (0.8-4.8) 12/05/22 16:34 [place] # (Auto) 1.2 10^3/uL (0.2-0.9) H 12/05/22 16:34 Eos # (Auto) 0.1 10^3/uL (0.0-0.8) 12/05/22 16:34 Baso # (Auto) 0.1 10^3/uL (0.0-0.1) 12/05/22 16:34 Nucleated RBC % (auto) 0 % 12/05/22 16:34 Nucleated RBCs # 0.0 /100WBC 12/05/22 16:34 PT 14.20 SECONDS (12.1-14.9) 12/05/22 16:34 INR 1.06 (0.8-1.2) 12/05/22 16:34 APTT 34.2 SECONDS (23.9-36.7) 12/05/22 16:34 Sodium 137 mmol/L (136-145) 12/05/22 16:34 Potassium 3.7 mmol/L (3.5-5.1) 12/05/22 16:34 Chloride 103 mmol/L (98-107) 12/05/22 16:34 Carbon Dioxide 24 mmol/L (22-29) 12/05/22 16:34 Anion Gap 13.7 (5-19) 12/05/22 16:34 BUN 5 mg/dL (6-20) L 12/05/22 16:34 Creatinine 0.5 mg/dL (0.5-0.9) 12/05/22 16:34 GFR Calculation 132.2 mL/min (90-130) H 12/05/22 16:34 Glucose 99 mg/dL (65-115) 12/05/22 16:34 Calculated Osmolality 281 mOsm/kg (285-295) L 12/05/22 16:34 Calcium 8.4 mg/dL (8.5-10.5) L 12/05/22 16:34 Total Bilirubin 0.5 mg/dL (0.15-1.2) 12/05/22 16:34 AST 34 U/L (0-32) H 12/05/22 16:34 ALT 18 U/L (0-33) 12/05/22 16:34 Alkaline Phosphatase 112 U/L (35-105) H 12/05/22 16:34 Total Protein 6.0 g/dL (6.6-8.7) L 12/05/22 16:34 Albumin 3.6 g/dL (3.5-5.2) 12/05/22 16:34 Globulin 2.4 g/dL (1.3-4.6) 12/05/22 16:34 Discharge Plan Discharge Patient Disposition: Home Clinical Impression: Post-operative state, Anemia, Drainage from surgical wound, Dehydration Condition: Stable Prescriptions: No Action levocetirizine [Xyzal] 5 mg tablet 5 mg PO .twice daily azelastine 137 mcg (0.1 %) aerosol,spray 1 spray intranasal BID Rx Instructions: administer into each nostril fluticasone propionate 50 mcg/actuation spray,suspension 1 spray intranasal DAILY Rx Instructions: administer into each nostril (DME) hinged knee brace See Rx Instructions .Route .MEDSUPPLY Qty: 1 0RF Rx Instructions: As directed potassium chloride [Klor-Con 8] 8 mEq tablet extended release 8 meq PO DAILY 30 Days Qty: 30 0RF (DME) Bone Growth Stimulator E0748 See Rx Instructions .Route .MEDSUPPLY Qty: 1 0RF Rx Instructions: As directed furosemide [Lasix] 20 mg tablet 10 mg PO DAILY 30 Days Qty: 15 0RF Rx Instructions: Take 1/2 tab every AM oxycodone-acetaminophen 10-325 mg tablet 1 tab PO Q4H PRN (Reason: pain) 7 Days Qty: 40 0RF glucosamine sulfate [Glucosamine] 500 mg Tablet 500 mg PO DAILY Rx Instructions: administer with a meal esomeprazole magnesium [Nexium] 40 mg Capsule,Delayed Release(Dr/Ec) 40 mg PO DAILY cranberry 400 mg Capsule 400 mg PO DAILY Rx Instructions: administer with a meal sertraline 25 mg Tablet 25 mg PO DAILY elderberry fruit 200 mg Capsule 200 mg PO DAILY cholecalciferol (vitamin D3) [Vitamin D3] 125 mcg (5,000 unit) Tablet 125 mcg PO DAILY omega 1-zkx-pwr-fish oil [Fish Oil] 1,000 mg (120 mg-180 mg) Capsule 1 cap PO DAILY gabapentin 300 mg Tablet 300 mg PO TID Discharge Orders: Discharge ED (Routine); Ordered 12/05/22 Ordered By: Aric Reed Referrals: Rhona Brenner FNP [Primary Care Provider] - Discharge Diet: Advance as tolerated and Clear Liquid Discharge Activity: Limit activity as instructed Patient Instructions: Dehydration (ED), Opioid Safety, Post Operative Pain Activity Restrictions/Additional Instructions: Thank you for visiting the emergency department. You were seen and evaluated for generalized malaise. The exact cause your symptoms is unclear, without chest x-ray and viral testing I cannot exclude other sources of infection. That being said the most likely etiology of your symptoms is related to postoperative state. Please follow-up with your surgeon. Please follow all instructions given at time of discharge. Please ensure that you are staying hydrated. Return to the emergency department for anything that you are concerned about and feel needs emergency department evaluation. Coding Level of Care Code ED [employer] for [employer]
[2022-12-05] MEDS: fentaNYL 50 mcg/mL INJ 2mL IVP (16:43)
[2022-12-05] MEDS: sodium chloride 0.9% 1,000 ML 999 ML IV (16:44)
--- NOTE | 2022-12-05 17:01 | PC.NURSE ---
Patient refused covid and flu tests. Dr Reed made aware.
[2022-12-05 17:11] LABS: Basophils # 0.1 10^3/uL (0.0-0.1); Basophils % 0.6 %; Eosinophils # 0.1 10^3/uL (0.0-0.8); Eosinophils % 1.1 %; Hematocrit 28.1 % (37.0-47.0); Lymphocytes # 2.3 10^3/uL (0.8-4.8); Lymphocytes % 22.1 %; Mean Corpuscular Hemoglobin 29.3 pg (28.0-34.0); Mean Corpuscular Volume 91.5 fl (81-99); Mean Platelet Volume 12.4 fL (7.4-10.4); Monocytes # 1.2 10^3/uL (0.2-0.9); Monocytes % 12.1 %; Neutrophils # 6.52 10^3/uL (1.8-7.7); Neutrophils % 63.6 %; Nucleated Red Blood Cells % 0 %; Platelet Count 163 10^3/cmm (130-400); Red Blood Count 3.07 10^6/uL (4.1-5.3); Red Cell Distribution Width 13.5 % (12.1-15.1); White Blood Count 10.2 10^3/uL (4.0-10.0)
--- NOTE | 2022-12-05 17:31 | PC.NURSE ---
Patient becoming aggravated, is wanting to leave AMA because we are not doing anything and is wanting us to change her dressing. Dr Reed already aware.
[2022-12-05 17:32] LABS: Alanine Aminotransferase 18 U/L (0-33); Albumin Level 3.6 g/dL (3.5-5.2); Alkaline Phosphatase 112 U/L (35-105); Anion Gap 13.7 (5-19); Aspartate Amino Transferase 34 U/L (0-32); Blood Urea Nitrogen 5 mg/dL (6-20); Calcium 8.4 mg/dL (8.5-10.5); Carbon Dioxide 24 mmol/L (22-29); Chloride 103 mmol/L (98-107); Globulin 2.4 g/dL (1.3-4.6); Glomerular Filtration Rate 132.2 mL/min (90-130); Glucose 99 mg/dL (65-115); Osmolality Calculated 281 mOsm/kg (285-295); Potassium 3.7 mmol/L (3.5-5.1); Sodium 137 mmol/L (136-145); Total Bilirubin 0.5 mg/dL (0.15-1.2)
[2022-12-05 17:43] LABS: INR 1.06 (0.8-1.2)
[2022-12-05 17:44] LABS: Partial Thromboplastin Time 34.2 SECONDS (23.9-36.7)
[2022-12-05] MEDS: HYDROmorphone 1 mg/mL INJ 1 mL 0.5 MG IVP (17:57)
--- NOTE | 2022-12-05 19:03 | PC.NURSE ---
3 ABD dressings used, 1 silverlon dressing used, 3 telfa dressing uses.
== END 2022-12-05 18:50 | disposition home or self-care (01) ==
PROVIDERS: Emergency Provider Emergency Medicine; PCP Nurse Practitioner Family
DX: D64.9 Anemia, unspecified (principal); T81.89XA Other complications of procedures, not elsewhere classified, initial encounter; Z98.890 Other specified postprocedural states; E86.0 Dehydration; F17.210 Nicotine dependence, cigarettes, uncomplicated; Y83.8 Other surgical procedures as the cause of abnormal reaction of the patient, or of later complication, without mention of misadventure at the time of the procedure
CPT/HCPCS: 36415; 80053; 85025; 85610; 85730; 96361; 96374; 96375; 99284; J1170; J3010; J7030

== ENCOUNTER → 2022-12-09 10:08 | Outpatient (BNVA) | payer OTHER, SELFPAY | PROVIDERS: PCP Nurse Practitioner Family; Visit Provider Physician Assistant | DX: Z98.1 Arthrodesis status (principal) | CPT/HCPCS: 72100 ==

== ENCOUNTER 2022-12-09 11:15 | Emergency (ER) | payer OTHER, SELFPAY | END 2022-12-09 11:31 | disposition left against medical advice (07) | LOC: ER 11:17 | PROVIDERS: Emergency Provider Family Medicine; PCP Nurse Practitioner Family | DX: Z53.21 Procedure and treatment not carried out due to patient leaving prior to being seen by health care provider (principal) ==

== ENCOUNTER 2022-12-09 18:44 | Emergency (ER) | payer OTHER, SELFPAY ==
[2022-12-09 18:47] VITALS: BP 133/85; PULSE 90; RESP 19; TEMP 36.4; O2SAT 95; BMI 32.8
--- NOTE | 2022-12-09 19:26 | USR_ITS ---
PROCEDURE INFORMATION: Exam: US Duplex Lower Extremity Veins, Bilateral Exam date and time: 12/09/2022 8:14 PM Age: 47 years old Clinical indication: Edema, localized; Lower extremity, bilateral; Prior surgery; Surgery date: 3-7 days post-operative; Surgery type: Ble edema S/P spinal fusion surgery 12/03/2022. No history of dvt per patient. ; Additional info: Swelling TECHNIQUE: Imaging protocol: Real-time duplex ultrasound of the bilateral extremities with 2-D pappas scale, color Doppler flow and spectral waveform analysis including responses to compression and other maneuvers (when performed) with image documentation. Complete exam focused on the lower extremity veins. COMPARISON: CR XR knees AP WB w RT lmt ORTH 08/05/2021 2:14 PM FINDINGS: Right deep veins: Unremarkable. The common femoral, femoral, proximal profunda femoral and popliteal veins are patent without thrombus. Normal Doppler waveforms. Normal compressibility and/or augmentation response. Right superficial veins: Saphenofemoral junction is patent without thrombus. Left deep veins: Unremarkable. The common femoral, femoral, proximal profunda femoral and popliteal veins are patent without thrombus. Normal Doppler waveforms. Normal compressibility and/or augmentation response. Left superficial veins: Saphenofemoral junction is patent without thrombus. Soft tissues: Unremarkable. US/CV venous duplex [facility] [id number] IMPRESSION: No evidence of deep vein thrombosis, bilateral lower extremities.
== END 2022-12-09 20:49 | disposition left against medical advice (07) ==
PROVIDERS: Emergency Provider Family Medicine; PCP Nurse Practitioner Family
DX: Z53.21 Procedure and treatment not carried out due to patient leaving prior to being seen by health care provider (principal)
CPT/HCPCS: 93970; 99284

== ENCOUNTER → 2022-12-18 15:35 | Outpatient (BNVA) | payer OTHER, SELFPAY | PROVIDERS: PCP Nurse Practitioner Family; Visit Provider Physician Assistant | DX: Z98.1 Arthrodesis status (principal) | CPT/HCPCS: 72100 ==

== ENCOUNTER 2022-12-18 16:31 | Outpatient (CLI) | payer OTHER, SELFPAY | END 2022-12-18 16:32 | disposition home or self-care (01) | LOC: SPT 16:32 | PROVIDERS: PCP Nurse Practitioner Family; Visit Provider Physician Assistant | DX: Z46.89 Encounter for fitting and adjustment of other specified devices (principal); M54.59 Other low back pain; Z98.1 Arthrodesis status; Z98.890 Other specified postprocedural states | CPT/HCPCS: 97760; L0637 ==

== ENCOUNTER → 2023-01-15 13:33 | Outpatient (BNVA) | payer OTHER, SELFPAY | PROVIDERS: PCP Nurse Practitioner Family; Visit Provider Physician Assistant | DX: Z98.1 Arthrodesis status (principal) | CPT/HCPCS: 72100 ==

== ENCOUNTER → 2023-02-05 14:04 | Outpatient (BNVA) | payer OTHER, SELFPAY | PROVIDERS: PCP Nurse Practitioner Family; Visit Provider Physician Assistant | DX: Z98.1 Arthrodesis status (principal) | CPT/HCPCS: 72100 ==

== ENCOUNTER → 2023-03-19 13:34 | Outpatient (BNVA) | payer OTHER, SELFPAY | PROVIDERS: PCP Nurse Practitioner Family; Visit Provider Orthopaedic Surgery | DX: Z98.1 Arthrodesis status (principal) | CPT/HCPCS: 72100 ==

== ENCOUNTER 2023-04-02 15:15 | Emergency (ER) | payer OTHER, SELFPAY ==
[2023-04-02 15:35] VITALS: BP 120/76; PULSE 82; RESP 15; TEMP 36.7; O2SAT 95; BMI 29.6
--- NOTE | 2023-04-02 16:28 | CTR_ITS ---
PROCEDURE INFORMATION: Exam: CT Lumbar Spine Without Contrast Exam date and time: 04/02/2023 4:59 PM Age: 48 years old Clinical indication: Low back pain; Prior surgery; Surgery date: 1-6 months; Surgery type: L3-s1 fusion; Additional info: Back pain, R radiculopathy/r le weakness TECHNIQUE: Imaging protocol: Computed tomography of the lumbar spine without contrast. Radiation optimization: All CT scans at this facility use at least one of these dose optimization techniques: automated exposure control; mA and/or kV adjustment per patient size (includes targeted exams where dose is matched to clinical indication); or iterative reconstruction. REPORTING DATA: Count of CT and Cardiac NM exams in prior 12 months: This patient has received 0 known CTs and 0 known cardiac nuclear medicine studies in the 12 months prior to the current study. COMPARISON: 1. MR lumbar spine wo con* [id number] 10/14/2022 10:57 AM 2. CR XR lumbar spine 2-3V* [id number] 03/19/2023 1:37 PM RADIATION DOSE METRICS: Total DLP (mGy-cm): 880.1 FINDINGS: Bones/joints: Posterior spinal fusion changes are present L3 to S1 with bilateral rods and pedicle screws. There are also bilateral sacroiliac joint fusion screws present. Discectomy with spacer is positioned at L4-L5 and L5-S1 is unchanged. The alignment of the spine is near anatomic. There is lucency surrounding the right L3 fusion screw with disruption of the superior endplate adjacent to the distal screw for example on series 9, image 54. There is also to a lesser extent lucency surrounding the left L3 fusion screw. Previous laminectomy changes are present at L4-L5. Minimal degenerative disc disease at L3-L4 is unchanged. No acute osseous injury. Adrenal glands: Indeterminate 1.5 cm left adrenal gland nodule measuring -4 Hounsfield units consistent with an adenoma. Kidneys and ureters: 4 mm nonobstructing left renal stone. Soft tissues: Unremarkable. CT/CT lumbar spine wo con* [id number] IMPRESSION: Stable L3-S1 posterior spinal fusion changes with L4-L5 and L5-S1 discectomy with spacer interposition. L4-L5 level laminectomy changes are also present. No acute displaced fracture. There is lucency surrounding the bilateral L3 fusion screws suspicious for hardware loosening.
--- NOTE | 2023-04-02 16:31 | W.ED.BACK ---
Documented by User: ERNESTO Willis 04/02/23 16:38 HPI - Back Pain/Injury General: Chief Complaint: Back Pain/Injury Stated Complaint: back pain, surgery 4months ago Time Seen by Provider: 04/02/23 16:13 Source: patient Mode of arrival: ambulatory Limitations: no limitations History of Present Illness: Patient is a 48-year-old female presents to ED today with a complaint of lower back pain with radiation down into her right lower extremity as well as weakness of the right leg. Patient is status post lumbar spinal fusion by Dr. Mccord performed back in December. She states she has followed up with Dr. Mccord multiple times since the surgery. She states he is wanting to order CT lumbar imaging however insurance is being difficult. She states she feels like the leg will give out often times causing her to almost fall. He has not noticed any color or temperature changes to the extremity. She feels like the pain in her back and lower leg is not improving despite pain medications. MD elicited complaint: back pain Pertinent past history: prior back pain and back surgery Onset (ago): week(s) Timing: constant Severity: severe Pain scale (0-10): 10 Similar Symptoms Previously: Yes Location: lumbar spine Radiation: right upper leg Exacerbating factors: movement, walking and lifting Relieving factors: none Associated symptoms: Reports difficulty walking; Deny abdominal pain, chills, dysuria, fatigue, fever(s) or hematuria Treatments prior to arrival: prescription analgesics Work related injury: No Review of Systems Const: Denies: fever(s), chills, body aches, fatigue or malaise Card: Denies: chest pain Resp: Denies: dyspnea GI: Denies: abdominal pain : Denies: flank pain, dysuria or hematuria Musc: Reports: back pain and extremity pain; Denies: neck pain, extremity swelling, joint pain, joint swelling, joint redness or joint warmth Skin/Breast: Denies: rash Neuro: Reports: weakness in extremities and difficulty walking; Denies: headache(s), numbness in extremities, sensory changes, lack of coordination or frequent falls [facility] ED PFSH: Medical History Environmental allergies Family History Grandmother Dementia Cancer lung Father Hypertension Grandmother Hypertension Denies family history of Diabetes CAD (coronary artery disease) Chronic kidney disease (CKD) Lung disease Stroke Social History Smoking and tobacco status: current every day smoker cigarettes Packs smoked per day: 1 Alcohol intake: never Substance/Drug Use: never Adopted: No Caregiver/support person: No Lives independently: No Household members: spouse Marital status: service: No Current occupational status: unemployed and disabled Sexually active: Yes Do you think of yourself as: Straight/Heterosexual Current gender identity: Female Physical Exam Const: COMMON NORMALS: no acute distress, average body habitus, patient oriented x3, no limitations, healthy appearing, alert and well nourished GENERAL APPEARANCE: cooperative ORIENTATION/CONSCIOUSNESS: Yes awake, Yes oriented to person, Yes oriented to place and Yes oriented to time Resp: COMMON NORMALS: normal respiratory effort and clear to auscultation bilaterally AUSCULTATION: clear to auscultation bilaterally Cardio: COMMON NORMALS: regular rate and regular rhythm RATE: regular rate RHYTHM: regular rhythm Back/Pelvis: THORACIC SPINE/UPPER BACK: Yes normal to inspection, No thoracic spinal tenderness, No paraspinal muscle tenderness and No paraspinal muscle spasm LUMBAR SPINE/LOWER BACK: Yes ROM limited, Yes pain with ROM, Yes lumbar spinal tenderness, No paraspinal muscle tenderness, No paraspinal muscle spasm and Yes straight leg raise positive right PELVIS: Yes buttocks normal and No sciatic notch tenderness SACROILIAC JOINTS: Yes SI joints normal SACRUM: no tenderness COCCYX: no tenderness Extremity: COMMON NORMALS: normal to inspection, capillary refill normal, no joint enlargement, no clubbing, cyanosis or edema, no calf tenderness and no pedal edema GENERAL: Yes normal exam except as noted Neuro: COMMON NORMALS: patient oriented x3, moves all extremities, no focal motor deficits and no sensory deficits noted SENSORIUM/ORIENTATION: Yes alert, Yes oriented to person, Yes oriented to place and Yes oriented to time MOTOR EXAM: 5/5 motor strength present throughout Course Vital Signs: Vital signs: Vital Signs Temperature 98.1 F 04/02/23 15:35 Pulse Rate 77 04/02/23 16:47 Respiratory Rate 18 04/02/23 18:31 Blood Pressure 115/74 04/02/23 18:37 Pulse Oximetry 96 04/02/23 16:47 Oxygen Delivery Me thod Room Air 04/02/23 16:47 MDM - Back Pain/Injury Labs Radiology Impressions Lumbar Spine CT 04/02/23 16:28 IMPRESSION: Stable L3-S1 posterior spinal fusion changes with L4-L5 and L5-S1 discectomy with spacer interposition. L4-L5 level laminectomy changes are also present. No acute displaced fracture. There is lucency surrounding the bilateral L3 fusion screws suspicious for hardware loosening. Discharge Plan Discharge Patient Disposition: Home Clinical Impression: Lumbar radiculopathy, Status post lumbar spinal fusion Condition: Stable Prescriptions: New methylprednisolone 4 mg tablets,dose pack See Rx Instructions .ROUTE .COMPLEX Qty: 21 0RF Rx Instructions: orally per package directions No Action levocetirizine [Xyzal] 5 mg tablet 5 mg PO .twice daily azelastine 137 mcg (0.1 %) aerosol,spray 1 spray intranasal BID Rx Instructions: administer into each nostril fluticasone propionate 50 mcg/actuation spray,suspension 1 spray intranasal DAILY Rx Instructions: administer into each nostril (DME) hinged knee brace See Rx Instructions .Route .MEDSUPPLY Qty: 1 0RF Rx Instructions: As directed (DME) LSO See Rx Instructions .Route .MEDSUPPLY Qty: 1 0RF Rx Instructions: As directed oxycodone-acetaminophen 10-325 mg tablet 1 tab PO Q4H PRN (Reason: pain) 7 Days Qty: 40 0RF (DME) Bone Growth Stimulator E0748 See Rx Instructions .Route .MEDSUPPLY Qty: 1 0RF Rx Instructions: As directed furosemide [Lasix] 20 mg tablet 10 mg PO DAILY 30 Days Qty: 15 0RF Rx Instructions: Take 1/2 tab every AM potassium chloride [Klor-Con 8] 8 mEq tablet extended release 8 meq PO DAILY 30 Days Qty: 30 0RF hydrocodone-acetaminophen 5-325 mg tablet 1 tab PO Q4H PRN (Reason: pain) 7 Days Qty: 30 0RF methocarbamol 750 mg tablet 750 mg PO TID Qty: 60 0RF oxycodone 5 mg tablet 5 mg PO Q6H PRN (Reason: pain) 7 Days Qty: 30 0RF glucosamine sulfate [Glucosamine] 500 mg Tablet 500 mg PO DAILY Rx Instructions: administer with a meal esomeprazole magnesium [Nexium] 40 mg Capsule,Delayed Release(Dr/Ec) 40 mg PO DAILY cranberry 400 mg Capsule 400 mg PO DAILY Rx Instructions: administer with a meal sertraline 25 mg Tablet 25 mg PO DAILY elderberry fruit 200 mg Capsule 200 mg PO DAILY cholecalciferol (vitamin D3) [Vitamin D3] 125 mcg (5,000 unit) Tablet 125 mcg PO DAILY omega 2-jpn-fxc-fish oil [Fish Oil] 1,000 mg (120 mg-180 mg) Capsule 1 cap PO DAILY gabapentin 300 mg Tablet 300 mg PO TID Discharge Orders: Discharge ED (Routine); Ordered 04/02/23 Ordered By: Steffen More Referrals: Blanche Ferrera NP [Primary Care Provider] - Discharge Diet: Regular Discharge Activity: Increase activity as tolerated Patient Instructions: Lumbar Radiculopathy (ED) Activity Restrictions/Additional Instructions: Call Dr. Mccord's office tomorrow to get an appointment set up with him for next week. Take medications as prescribed and continue taking pain/muscle relaxer medications as previously prescribed. Return to the ER or your medical provider if condition worsens. Please read and understand discharge instructions. Thank you for choosing [facility] for your healthcare needs today. Please realize this is an emergency room and that we are providing you with a medical screening exam and this may not be complete and all inclusive of all the testing and or work up that you may need to determine your ailment or severity of your illness. It is very important that you follow up as instructed or that you return to the Emergency Department should you have concerns or if your condition changes or worsens in any way. Sign Out Sign Out Data: Patient Sign Out occurred on 04/02/23 at 17:07. Patient's care was discussed, and care was transferred from to ERNESTO Velazquez. Coding Level of Care Code ED Machine Egg Washer for Chg Fwd Documented by User: ERNESTO Velazquez 04/02/23 18:44 HPI - Back Pain/Injury General: Chief Complaint: Back Pain/Injury Stated Complaint: back pain, surgery 4months ago Time Seen by Provider: 04/02/23 16:13 PFSH ED PFSH: Medical History Environmental allergies Family History Grandmother Dementia Cancer lung Father Hypertension Grandmother Hypertension Denies family history of Diabetes CAD (coronary artery disease) Chronic kidney disease (CKD) Lung disease Stroke Social History Smoking and tobacco status: current every day smoker cigarettes Packs smoked per day: 1 Alcohol intake: never Substance/Drug Use: never Adopted: No Caregiver/support person: No Lives independently: No Household members: spouse Marital status: service: No Current occupational status: unemployed and disabled Sexually active: Yes Do you think of yourself as: Straight/Heterosexual Current gender identity: Female Course Vital Signs: Vital signs: Vital Signs Temperature 98.1 F 04/02/23 15:35 Pulse Rate 77 04/02/23 16:47 Respiratory Rate 18 04/02/23 18:31 Blood Pressure 115/74 04/02/23 18:37 Pulse Oximetry 96 04/02/23 16:47 Oxygen Delivery Me thod Room Air 04/02/23 16:47 MDM - Back Pain/Injury Medical Decision Making Patient is a 48-year-old female presents to ED today with a complaint of lower back pain with radiation down into her right lower extremity as well as weakness of the right leg. Patient is status post lumbar spinal fusion by Dr. Mccord performed back in December. She states she has followed up with Dr. Mccord multiple times since the surgery. She states he is wanting to order CT lumbar imaging however insurance is being difficult. She states she feels like the leg will give out often times causing her to almost fall. He has not noticed any color or temperature changes to the extremity. She feels like the pain in her back and lower leg is not improving despite pain medications. Vitals are stable. I took over patient case from Janessa Felix physician junior administrative assistant at 5 PM. I agree with above history and exam findings. CT of lumbar spine results were pending at that time. CT lumbar spine showed stable L3-S1 posterior spinal fusion changes with L4-L5 and L5-S1 dissected me with spacer interposition. L4-L5 level laminectomy changes are also present no acute displaced fracture. There is some lucency surrounding the bilateral L3 fusion screws suspicious for hardware loosening. I contacted Dr. Mccord and told him about CT findings. He recommended to have patient call his office tomorrow to set up an appointment for outpatient follow-up in clinic next week. Patient was given a dose of Dilaudid and a shot of Decadron here in the ED before discharge. She was diagnosed with lumbar radiculopathy and status post lumbar spinal fusion. She was told to contact Dr. Mccord's office tomorrow to set up an appointment for next week. She was sent home with a prescription for a Medrol Dosepak. She was told to continue taking her previously prescribed oxycodone and methocarbamol. Return to ED precautions given. Patient understood and agreed with plan. Labs Radiology Impressions Lumbar Spine CT 04/02/23 16:28 IMPRESSION: Stable L3-S1 posterior spinal fusion changes with L4-L5 and L5-S1 discectomy with spacer interposition. L4-L5 level laminectomy changes are also present. No acute displaced fracture. There is lucency surrounding the bilateral L3 fusion screws suspicious for hardware loosening. Discharge Plan Discharge Patient Disposition: Home Clinical Impression: Lumbar radiculopathy, Status post lumbar spinal fusion Condition: Stable Prescriptions: New methylprednisolone 4 mg tablets,dose pack See Rx Instructions .ROUTE .COMPLEX Qty: 21 0RF Rx Instructions: orally per package directions No Action levocetirizine [Xyzal] 5 mg tablet 5 mg PO .twice daily azelastine 137 mcg (0.1 %) aerosol,spray 1 spray intranasal BID Rx Instructions: administer into each nostril fluticasone propionate 50 mcg/actuation spray,suspension 1 spray intranasal DAILY Rx Instructions: administer into each nostril (DME) hinged knee brace See Rx Instructions .Route .MEDSUPPLY Qty: 1 0RF Rx Instructions: As directed (DME) LSO See Rx Instructions .Route .MEDSUPPLY Qty: 1 0RF Rx Instructions: As directed oxycodone-acetaminophen 10-325 mg tablet 1 tab PO Q4H PRN (Reason: pain) 7 Days Qty: 40 0RF (DME) Bone Growth Stimulator E0748 See Rx Instructions .Route .MEDSUPPLY Qty: 1 0RF Rx Instructions: As directed furosemide [Lasix] 20 mg tablet 10 mg PO DAILY 30 Days Qty: 15 0RF Rx Instructions: Take 1/2 tab every AM potassium chloride [Klor-Con 8] 8 mEq tablet extended release 8 meq PO DAILY 30 Days Qty: 30 0RF hydrocodone-acetaminophen 5-325 mg tablet 1 tab PO Q4H PRN (Reason: pain) 7 Days Qty: 30 0RF methocarbamol 750 mg tablet 750 mg PO TID Qty: 60 0RF oxycodone 5 mg tablet 5 mg PO Q6H PRN (Reason: pain) 7 Days Qty: 30 0RF glucosamine sulfate [Glucosamine] 500 mg Tablet 500 mg PO DAILY Rx Instructions: administer with a meal esomeprazole magnesium [Nexium] 40 mg Capsule,Delayed Release(Dr/Ec) 40 mg PO DAILY cranberry 400 mg Capsule 400 mg PO DAILY Rx Instructions: administer with a meal sertraline 25 mg Tablet 25 mg PO DAILY elderberry fruit 200 mg Capsule 200 mg PO DAILY cholecalciferol (vitamin D3) [Vitamin D3] 125 mcg (5,000 unit) Tablet 125 mcg PO DAILY omega 7-pwj-dov-fish oil [Fish Oil] 1,000 mg (120 mg-180 mg) Capsule 1 cap PO DAILY gabapentin 300 mg Tablet 300 mg PO TID Discharge Orders: Discharge ED (Routine); Ordered 04/02/23 Ordered By: Steffen More Referrals: Blanche Ferrera NP [Primary Care Provider] - Discharge Diet: Regular Discharge Activity: Increase activity as tolerated Patient Instructions: Lumbar Radiculopathy (ED) Activity Restrictions/Additional Instructions: Call Dr. Mccord's office tomorrow to get an appointment set up with him for next week. Take medications as prescribed and continue taking pain/muscle relaxer medications as previously prescribed. Return to the ER or your medical provider if condition worsens. Please read and understand discharge instructions. Thank you for choosing [facility] for your healthcare needs today. Please realize this is an emergency room and that we are providing you with a medical screening exam and this may not be complete and all inclusive of all the testing and or work up that you may need to determine your ailment or severity of your illness. It is very important that you follow up as instructed or that you return to the Emergency Department should you have concerns or if your condition changes or worsens in any way. Sign Out Sign Out Data: Patient Sign Out occurred on 04/02/23 at 17:07. Patient's care was discussed, and care was transferred from to ERNESTO Velazquez. Coding Level of Care Code ED Machine Egg Washer for Gen Walter
[2023-04-02 16:44] VITALS: RESP 18
[2023-04-02] MEDS: morphine 4 mg/mL SDV 1 mL IM (16:44)
[2023-04-02 16:47] VITALS: BP 138/81; PULSE 77; O2SAT 96
[2023-04-02 18:31] VITALS: RESP 18
[2023-04-02] MEDS: dexamethasone 10 mg/mL INJ IM (18:31)
[2023-04-02] MEDS: HYDROmorphone 1 mg/mL INJ 1 mL IM (18:31)
[2023-04-02 18:37] VITALS: BP 115/74
== END 2023-04-02 18:38 | disposition home or self-care (01) ==
PROVIDERS: Emergency Provider Physician Assistant; PCP Nurse Practitioner Family
DX: M54.16 Radiculopathy, lumbar region (principal); Z98.1 Arthrodesis status; Z79.899 Other long term (current) drug therapy
CPT/HCPCS: 72131; 96372; 99284; J1100; J1170; J2270

== ENCOUNTER → 2023-04-16 10:48 | Outpatient (BNVA) | payer OTHER, SELFPAY | PROVIDERS: PCP Nurse Practitioner Family; Visit Provider Orthopaedic Surgery | DX: M25.571 Pain in right ankle and joints of right foot (principal) | CPT/HCPCS: 73610 ==

== ENCOUNTER 2023-05-08 12:38 | Emergency (ER) | payer OTHER, SELFPAY ==
[2023-05-08] VITALS (9 sets, daily range): BP systolic 108–140; BP diastolic 62–86; PULSE 70–80; RESP 16–18; TEMP 36.7; O2SAT 95–99; BMI 29.7
--- NOTE | 2023-05-08 12:41 | ED_ITS ---
HPI - Back Pain/Injury General: Chief Complaint: Back Pain/Injury Stated Complaint: fall, back pain into legs Time Seen by Provider: 05/08/23 12:40 History of Present Illness: Ms. Tobar is a 48-year-old lady with history of back surgery and chronic back pain presenting to emergency department for worsening back pain with injury. She reports on Thursday she was leaning down in her kitchen and fell backwards landing on her back. She met daily had increased pain. Since that time said persistent pain unrelieved by home medications including prescription opioids with radiation down bilateral legs. No loss of continence or control bowel or bladder, no saddle anesthesia, no weakness. Moderate to severe intensity worse with palpation and movement. Denies shortness of breath, chest pain, dizziness, lightheadedness before fall. No other specific changes in health, exacerbating, or alleviating factors identified. Onset (ago): day(s) Severity: severe Radiation: left upper leg and right upper leg Exacerbating factors: movement Associated symptoms: Reports no associated symptoms Review of Systems General: Reports: 10 or more systems reviewed and unremarkable except in HPI and below PFSH ED PFSH: Medical History Environmental allergies Lumbar stenosis with neurogenic claudication Surgical History H/O ovarian cystectomy H/O: hysterectomy Hx of appendectomy Hx of tonsillectomy Status post lumbar laminectomy Status post lumbar spinal fusion Family History Grandmother Dementia Cancer lung Father Hypertension Grandmother Hypertension Denies family history of Diabetes CAD (coronary artery disease) Chronic kidney disease (CKD) Lung disease Stroke Social History Smoking and tobacco status: current every day smoker cigarettes Packs smoked per day: 1 Alcohol intake: never Substance/Drug Use: never Adopted: No Caregiver/support person: No Lives independently: No Household members: spouse Marital status: service: No Current occupational status: unemployed and disabled Sexually active: Yes Do you think of yourself as: Straight/Heterosexual Current gender identity: Female Physical Exam Const: COMMON NORMALS: alert GENERAL APPEARANCE: cooperative and well developed HENMT: COMMON NORMALS: normocephalic and atraumatic HEAD & SCALP: normocephalic and atraumatic Eye: COMMON NORMALS: conjunctivae normal CONJUNCTIVA: Yes conjunctivae normal SCLERA: sclerae normal Neck/C-Spine: COMMON NORMALS: supple GENERAL: Yes trachea midline Resp: COMMON NORMALS: normal respiratory effort EFFORT & INSPECTION: Yes able to speak in complete sentences Cardio: COMMON NORMALS: regular rate and regular rhythm RATE: regular rate RHYTHM: regular rhythm GI: COMMON NORMALS: Soft to palpation PALPATION: Yes Soft to palpation and No Tenderness to palpation present (GI) Back/Pelvis: OTHER: Surgical incision umbilicus well-healed. Significant tenderness to even light palpation without obvious deformity to the midline low lumbar sacral region Extremity: GENERAL: Yes normal exam except as noted and No edema Neuro: COMMON NORMALS: moves all extremities SENSORIUM/ORIENTATION: Yes alert and No Orientation impaired Psych: COMMON NORMALS: mental status grossly normal and Normal thought process present THOUGHT PROCESS: Normal thought process present Course Vital Signs: Vital signs: Vital Signs Temperature 98.1 F 05/08/23 12:53 Pulse Rate 77 05/08/23 15:42 Respiratory Rate 18 05/08/23 15:42 Blood Pressure 116/67 05/08/23 15:42 Pulse Oximetry 98 05/08/23 15:42 MDM - Back Pain/Injury Medical Decision Making 48-year-old lady with history of back surgery presenting with controlled fall and back pain. Exam as above. No indication for labs. Lumbar spine appears similar to prior without acute traumatic injury. Lucency around the pedicle screw discussed. Improved with analgesia and muscle relaxation. Also given steroids. The results of ED evaluation were discussed with the patient including prescriptions and/or symptomatic cares (if applicable) including appropriate and responsible use, followup plan, and return precautions. The patient verbalized understanding and felt safe for discharge. Medical Records I reviewed the patient's medical records. Labs I reviewed the patient's lab results. Radiology Impressions Lumbar Spine CT 05/08/23 13:03 IMPRESSION: 1. Status post posterior lumbar fusion with decompression from L3 to S1. No acute fractures. 2. Lucency surrounding the L3 pedicle screws similar to the prior study suspicious for loosening. 3. No significant central or foraminal stenosis Discharge Plan Discharge Patient Disposition: Home Clinical Impression: Fall, Acute exacerbation of chronic low back pain, Lumbar radicular pain Condition: Stable Prescriptions: New oxycodone 5 mg tablet 5 mg PO Q4H PRN (Reason: pain) Qty: 20 0RF methocarbamol 750 mg tablet 750 mg PO Q8H PRN (Reason: back pain) Qty: 20 0RF Medrol (Devang) 4 mg tablets,dose pack See Rx Instructions .ROUTE .COMPLEX Qty: 21 0RF Rx Instructions: orally per package directions No Action levocetirizine [Xyzal] 5 mg tablet 5 mg PO .twice daily azelastine 137 mcg (0.1 %) aerosol,spray 1 spray intranasal BID Rx Instructions: administer into each nostril fluticasone propionate 50 mcg/actuation spray,suspension 1 spray intranasal DAILY Rx Instructions: administer into each nostril (DME) hinged knee brace See Rx Instructions .Route .MEDSUPPLY Qty: 1 0RF Rx Instructions: As directed (DME) LSO See Rx Instructions .Route .MEDSUPPLY Qty: 1 0RF Rx Instructions: As directed oxycodone 5 mg tablet 5 mg PO Q6H PRN (Reason: pain) 7 Days Qty: 30 0RF (DME) Bone Growth Stimulator E0748 See Rx Instructions .Route .MEDSUPPLY Qty: 1 0RF Rx Instructions: As directed methocarbamol 750 mg tablet 750 mg PO TID Qty: 60 0RF esomeprazole magnesium [Nexium] 40 mg Capsule,Delayed Release(Dr/Ec) 40 mg PO DAILY cranberry 400 mg Capsule 400 mg PO DAILY Rx Instructions: administer with a meal sertraline 25 mg Tablet 25 mg PO DAILY cholecalciferol (vitamin D3) [Vitamin D3] 125 mcg (5,000 unit) Tablet 125 mcg PO DAILY gabapentin 300 mg Capsule 300 mg PO TID Elderberry 200 mg PO DAILY Discharge Orders: Discharge ED (Routine); Ordered 05/08/23 Ordered By: Aric Reed Referrals: Blanche Ferrera NP [Primary Care Provider] - Discharge Diet: Usual diet Discharge Activity: Increase activity as tolerated Patient Instructions: Acute Low Back Pain (ED), Opioid Safety Activity Restrictions/Additional Instructions: Thank you for visiting the emergency department. You were seen in provider for low back pain exacerbation after fall. We are pleased that you had improvement with treatment. Please follow-up with your primary care provider and spine surgeon. I will prescribe additional doses of oxycodone. I will also prescribe steroids and muscle relaxers. Use opioids and muscle relaxers cautiously and watch for signs of oversedation. Return for uncontrolled symptoms, extremity weakness, loss of control of bowel or bladder, numbness in the perianal or groin region, or anything else that you are concerned about and feel needs emergency department evaluation. Coding Level of Care Code ED Hide And Skin Colerer for Gen Walter
--- NOTE | 2023-05-08 13:03 | CT_ITS ---
WS: [id number] CT LUMBAR SPINE, noncontrast. HISTORY: fall, low back pain, radiation down legs posterior TECHNIQUE: Contiguous 2.0 mm axial imaging are performed. Sagittal and coronal reformats are submitte d and reviewed. All CT scans at [facility] use at least one of these dose optimization techni ques: automated exposure control; mA and/or kV adjustment per patient size (includes targeted exams w here dose is matched to clinical indication); or iterative reconstruction. IV contrast: None DLP: 961.90 mGy.cm COMPARISON: 04/02/2023 Posterior lumbar fusion hardware from L3 to S1. Interbody spacers at L4-5 and L5-S1. Moderate amount of a lucency surrounding the L3 pedicle screws which is similar to the prior study. Disruption superi or endplate of the RIGHT pedicle screw. Additional bilateral SI joint fusion screws. Defect LEFT L3 t ransverse process was present on the prior examination. No acute fractures are identified. L1-2: Normal. L2-3: Mild annular disc bulging and osteophytic ridging. Very mild encroachment upon the ventral thec al sac and subarticular recesses. L3-4: Mild annular disc bulging LEFT hemilaminectomy defect. L4-5: Mild annular disc bulging with posterior laminectomy defects. The soft tissues are being obscur ed by artifact from the hardware and interbody spacer. L5-S1: Large posterior laminectomy defect. Visualized retroperitoneum is normal. CT/CT lumbar spine wo con* [id number] IMPRESSION: 1. Status post posterior lumbar fusion with decompression from L3 to S1. No ac bran fractures. 2. Lucency surrounding the L3 pedicle screws similar to the prior study suspic ious for loosening. 3. No significant central or foraminal stenosis
[2023-05-08] MEDS: ketorolac 30 mg/mL INJ 15 MG IVP (13:23)
[2023-05-08] MEDS: methocarbamol 750 mg Tablet PO (13:23)
[2023-05-08] MEDS: acetaminophen 500 mg Tablet 1000 MG PO (13:23)
[2023-05-08] MEDS: fentaNYL 50 mcg/mL INJ 2mL IVP (13:24)
[2023-05-08] MEDS: oxyCODONE 5 mg IR Tab/Cap PO (14:32)
== END 2023-05-08 15:43 | disposition home or self-care (01) ==
PROVIDERS: Emergency Provider Emergency Medicine; PCP Nurse Practitioner Family
DX: G89.29 Other chronic pain (principal); M54.50 Low back pain, unspecified; M54.16 Radiculopathy, lumbar region; F17.210 Nicotine dependence, cigarettes, uncomplicated
CPT/HCPCS: 72131; 96374; 96375; 99284; J1885; J2930; J3010

== ENCOUNTER → 2023-05-14 12:56 | Outpatient (BNVA) | payer OTHER, SELFPAY | PROVIDERS: PCP Nurse Practitioner Family; Visit Provider Orthopaedic Surgery | DX: M54.16 Radiculopathy, lumbar region (principal); W19.XXXA Unspecified fall, initial encounter; Z98.1 Arthrodesis status | CPT/HCPCS: 72100 ==

== ENCOUNTER 2023-05-24 10:59 | Emergency (ER) | payer OTHER, SELFPAY ==
[2023-05-24 11:17] VITALS: BP 124/84; PULSE 85; RESP 15; O2SAT 97
--- NOTE | 2023-05-24 12:00 | W.ED.BACK ---
HPI - Back Pain/Injury General: Chief Complaint: Back Pain/Injury Stated Complaint: lower back pain, nausea Time Seen by Provider: 05/24/23 11:32 History of Present Illness: Syd is a 48-year-old female that is status post lumbar fusion in December of this year with Dr. Mccord. She reports falls due to ongoing back pain that have undergone evaluation. Reportedly, last CT revealed hardware failure and patient is supposed to undergo a second procedure. She has been dealing with chronic back pain that she is currently taking oxycodone for. Patient has not had any falls since her last radiographic evaluation. She denies any new weakness numbness or tingling. Her radiculopathy pain is located in the S1 distribution and terminates in her calf, right greater than left. Patient uses tobacco/nicotine products She is not wearing her brace She is continuing to take gabapentin 300 mg 3 times daily and 5 mg every 6 of oxycodone that was last prescribed on 05/14/2023 Patient has follow-up with Dr. Mccord on 05/26/2023 Associated symptoms: Deny abdominal pain, chills, difficulty walking, dysuria, fatigue, fever(s), hematuria, nausea, urinary urgency or vomiting Review of Systems General: Reports: 10 or more systems reviewed and unremarkable except in HPI and below Const: Denies: fever(s), chills, change in appetite, change in weight, fatigue or malaise Eyes: Denies: change in vision, eye discomfort, eye discharge or eye redness ENMT: Denies: throat pain, enlarged tonsils, odynophagia, hoarseness, ear or mastoid pain, ear discharge, change in hearing, tinnitus, nasal discharge, nasal congestion, post nasal drip or sinus pain Card: Denies: chest pain, palpitations, irregular heart rhythm, edema, dyspnea on exertion, orthopnea or leg pain with exertion Resp: Denies: dyspnea, productive cough, non-productive cough, wheezing, stridor or chest congestion GI: Denies: abdominal pain, nausea, vomiting, dysphagia, diarrhea, constipation, bloating, GI cramping or hematochezia : Denies: flank pain, difficulty voiding, dysuria, urinary frequency, urinary urgency, urinary hesitancy, oliguria or hematuria Musc: Reports: back pain and extremity pain; Denies: neck pain, joint pain, joint swelling, joint redness, joint warmth or muscle weakness Skin/Breast: Denies: rash, pruritus, erythema, photosensitivity or new lesions Neuro: Denies: headache(s), numbness in extremities, weakness in extremities, sensory changes, lack of coordination, difficulty walking, frequent falls, dizziness, confusion, Slurred speech present, difficulty communicating thoughts, seizure-like activity or involuntary movements Endo: Denies: polyuria, polydipsia or tired all the time Zeb/Lymph: Denies: easy bruising or easy bleeding PFSH ED PFSH: Medical History Environmental allergies Lumbar stenosis with neurogenic claudication Surgical History H/O ovarian cystectomy H/O: hysterectomy Hx of appendectomy Hx of tonsillectomy Status post lumbar laminectomy Status post lumbar spinal fusion Family History Grandmother Dementia Cancer lung Father Hypertension Grandmother Hypertension Denies family history of Diabetes CAD (coronary artery disease) Chronic kidney disease (CKD) Lung disease Stroke Social History Smoking and tobacco status: current every day smoker cigarettes Packs smoked per day: 1 Alcohol intake: never Substance/Drug Use: never Adopted: No Caregiver/support person: No Lives independently: No Household members: spouse Marital status: service: No Current occupational status: unemployed and disabled Sexually active: Yes Do you think of yourself as: Straight/Heterosexual Current gender identity: Female Physical Exam Const: COMMON NORMALS: no acute distress, patient oriented x3 and alert GENERAL APPEARANCE: cooperative ORIENTATION/CONSCIOUSNESS: Yes awake, Yes oriented to person, Yes oriented to place and Yes oriented to time HENMT: COMMON NORMALS: normocephalic and atraumatic HEAD & SCALP: normocephalic and atraumatic FACE & SINUS: normal facial exam MOUTH: Normal oral and palatal mucosa present THROAT: posterior oropharynx normal Eye: COMMON NORMALS: Equal, round and reactive pupils present, EOMs intact bilaterally, conjunctivae normal and no scleral icterus GENERAL EYE: appearance normal, both eyes and all related structures ALIGNMENT: Yes alignment normal PERIORBITAL: periorbital findings normal CONJUNCTIVA: Yes conjunctivae normal PUPIL: Yes Equal, round and reactive pupils present Neck/C-Spine: COMMON NORMALS: full ROM GENERAL: Yes normal visual inspection Lymph: LYMPHATIC: no lymphadenopathy noted Chest: COMMONS NORMALS: normal inspection of the chest Breast/axilla inspection: Yes no chest deformity, asymmetry, normal contours, no nodules, masses, tenderness Resp: COMMON NORMALS: normal respiratory effort, No retractions, No use of accessory muscles and clear to auscultation bilaterally EFFORT & INSPECTION: Yes able to speak in complete sentences and Yes symmetric chest movement AUSCULTATION: clear to auscultation bilaterally Cardio: COMMON NORMALS: regular rate, regular rhythm and Peripheral pulses 2+ throughout RATE: regular rate RHYTHM: regular rhythm PERIPHERAL PULSES: Peripheral pulses 2+ throughout GI: COMMON NORMALS: Normal to inspection, nondistended, normoactive bowel sounds present, Soft to palpation, non-tender and No hepatosplenomegaly present INSPECTION: Yes normal to inspection AUSCULTATION: Yes normoactive bowel sounds PALPATION: Yes Soft to palpation and Yes No hepatosplenomegaly present RECTAL EXAM: deferred Back/Pelvis: OTHER: Lumbar back pain Tenderness to palpation over the paraspinous muscle Patient has radiculopathy that follows along the L5 and S1 distribution. L5 terminates in the lateral hip/thigh and S1 terminates in the calf No appreciated weakness. Patient is able to mobilize without assistive devices or difficulty Extremity: COMMON NORMALS: normal to inspection GENERAL: Yes normal exam except as noted Neuro: COMMON NORMALS: patient oriented x3 SENSORIUM/ORIENTATION: Yes alert, Yes oriented to person, Yes oriented to place and Yes oriented to time CRANIAL NERVES: Yes CN normal except as noted Psych: COMMON NORMALS: mental status grossly normal, Normal thought process present, cooperative, activity/motor behavior normal, denies homicidal ideation and denies suicidal ideation THOUGHT PROCESS: Normal thought process present Skin: COMMON NORMALS: no rashes or lesions noted, no wounds and turgor normal GENERAL SKIN EXAM: no rashes or lesions noted and turgor normal Course Vital Signs: Vital signs: Vital Signs Pulse Rate 85 05/24/23 11:17 Respiratory Rate 15 05/24/23 11:17 Blood Pressure 124/84 05/24/23 11:17 Pulse Oximetry 97 05/24/23 11:17 MDM - Back Pain/Injury Medical Decision Making Patient was evaluated in the emergency department for lumbar back pain and radicular symptoms. She denies any new injury or any new symptoms. She states she is here just for pain medication. I treated her pain here in the emergency department and one of my attendings was seen to prescribe oxycodone at her request. She needs to follow-up with Dr. Mccord as arranged. I have advised her to use her brace I am going to prescribe her some Robaxin as well. All questions answered Discharge Plan Discharge Patient Disposition: Home Clinical Impression: Status post lumbar spinal fusion, DDD (degenerative disc disease), lumbar, Lumbar radiculopathy, Strain of lumbar region Condition: Stable Prescriptions: New methocarbamol 500 mg tablet 500 mg PO Q6H PRN (Reason: muscle spasm) Qty: 60 0RF No Action levocetirizine [Xyzal] 5 mg tablet 5 mg PO .twice daily azelastine 137 mcg (0.1 %) aerosol,spray 1 spray intranasal BID Rx Instructions: administer into each nostril fluticasone propionate 50 mcg/actuation spray,suspension 1 spray intranasal DAILY Rx Instructions: administer into each nostril (DME) hinged knee brace See Rx Instructions .Route .MEDSUPPLY Qty: 1 0RF Rx Instructions: As directed (DME) LSO See Rx Instructions .Route .MEDSUPPLY Qty: 1 0RF Rx Instructions: As directed oxycodone 5 mg tablet 5 mg PO Q6H PRN (Reason: pain) 7 Days Qty: 30 0RF (DME) Bone Growth Stimulator [id number] See Rx Instructions .Route .MEDSUPPLY Qty: 1 0RF Rx Instructions: As directed methocarbamol 750 mg tablet 750 mg PO TID Qty: 60 0RF esomeprazole magnesium [Nexium] 40 mg Capsule,Delayed Release(Dr/Ec) 40 mg PO DAILY cranberry 400 mg Capsule 400 mg PO DAILY Rx Instructions: administer with a meal sertraline 25 mg Tablet 25 mg PO DAILY cholecalciferol (vitamin D3) [Vitamin D3] 125 mcg (5,000 unit) Tablet 125 mcg PO DAILY gabapentin 300 mg Capsule 300 mg PO TID Elderberry 200 mg PO DAILY oxycodone 5 mg tablet 5 mg PO Q4H PRN (Reason: pain) Qty: 20 0RF methocarbamol 750 mg tablet 750 mg PO Q8H PRN (Reason: back pain) Qty: 20 0RF Medrol (Devang) 4 mg tablets,dose pack See Rx Instructions .ROUTE .COMPLEX Qty: 21 0RF Rx Instructions: orally per package directions Discharge Orders: Discharge ED (Routine); Ordered 05/24/23 Ordered By: Jordin Hinkle Referrals: Blanche Ferrera NP [Primary Care Provider] - Discharge Diet: Advance as tolerated Patient Instructions: How to Stop Smoking (ED), Low Back Strain (ED), Lumbar Radiculopathy (ED), Opioid Safety, Pain Management Activity Restrictions/Additional Instructions: Please take medications as prescribed Please wear your brace This may help with some of your back pain Provided you with another prescription of Robaxin and it looks like you still have gabapentin. Take these medications as prescribed Follow-up with Dr. Mccord as discussed Return to the emergency department for new concerning or worsening symptoms Coding Level of Care Code ED Metal Tank Builder for Gen Walter
[2023-05-24] MEDS: dexamethasone 10 mg/mL INJ IM (12:04)
[2023-05-24] MEDS: orphenadrine 30 mg/mL Inj 2 mL 60 MG IM (12:05)
[2023-05-24] MEDS: ketorolac 60 mg/2 mL INJ IM (12:05)
== END 2023-05-24 13:01 | disposition home or self-care (01) ==
PROVIDERS: Emergency Provider Nurse Practitioner; PCP Nurse Practitioner Family
DX: M51.36 Other intervertebral disc degeneration, lumbar region (principal); M54.16 Radiculopathy, lumbar region; S39.012A Strain of muscle, fascia and tendon of lower back, initial encounter; Z98.890 Other specified postprocedural states; X58.XXXA Exposure to other specified factors, initial encounter
CPT/HCPCS: 96372; 99284; J1100; J1885; J2360

== ENCOUNTER 2023-06-17 10:33 | Outpatient (CLI) | payer OTHER, SELFPAY ==
[2023-06-17 10:58] LABS: Add Urine Microscopic? NO; Charge for UA Resulting for Rev
[2023-06-17 11:09] LABS: Specific Gravity, Urine 1.005 (1.005-1.030); Urine Appearance Clear (CLEAR); Urine Color Yellow (Yellow); pH Urine 7 (5-7)
[2023-06-17 11:10] LABS: Basophils # 0.1 10^3/uL (0.0-0.1); Basophils % 0.8 %; Eosinophils # 0.1 10^3/uL (0.0-0.8); Eosinophils % 1.7 %; Lymphocytes # 2.3 10^3/uL (0.8-4.8); Mean Corpuscular HGB Conc 31.2 g/dL (30-55); Mean Corpuscular Hemoglobin 26.5 pg (27-33); Mean Corpuscular Volume 84.8 fl (85-98); Monocytes # 0.8 10^3/uL (0.2-0.9); Monocytes % 10.6 %; Neutrophils # 3.97 10^3/uL (1.8-7.7); Neutrophils % 54.6 %; Nucleated Red Blood Cells % 0 %; Platelet Count 230 10^3/cmm (157-399); Red Blood Count 4.95 10^6/uL (3.85-5.65); White Blood Count 7.27 10^3/uL (3.29-11.43)
[2023-06-17 11:10] LABS: Bilirubin Urine Neg (Negative); Blood Urine Neg (Negative); Glucose Urine UA Norm (Normal); Ketones Urine Negative (Negative); Leukocyte Esterase Urine Negative (Negative); Nitrate Urine Negative (Negative); Protein Urine Neg (Negative); Urobilinogen Urine Norm (Negative)
[2023-06-17 11:21] LABS: Alanine Aminotransferase 7 U/L (0-33); Albumin Level 4.5 g/dL (3.5-5.2); Alkaline Phosphatase 118 U/L (35-105); Anion Gap 11.5 (5-19); Aspartate Amino Transferase 15 U/L (0-32); Blood Urea Nitrogen 7 mg/dL (6-20); Calcium 9.4 mg/dL (8.5-10.5); Carbon Dioxide 29 mmol/L (22-29); Chloride 105 mmol/L (98-107); Globulin 2.7 g/dL (1.3-4.6); Glomerular Filtration Rate 89.3 mL/min (90-130); Glucose 76 mg/dL (65-115); Osmolality Calculated 289 mOsm/kg (285-295); Potassium 4.5 mmol/L (3.5-5.1); Sodium 141 mmol/L (136-145); Total Bilirubin 0.2 mg/dL (0.15-1.2); Total Protein 7.2 g/dL (6.6-8.7)
== END 2023-06-17 10:34 | disposition home or self-care (01) ==
PROVIDERS: PCP Nurse Practitioner Family; Visit Provider Orthopaedic Surgery
DX: M43.16 Spondylolisthesis, lumbar region (principal); Z98.890 Other specified postprocedural states; M48.062 Spinal stenosis, lumbar region with neurogenic claudication; Z98.1 Arthrodesis status
CPT/HCPCS: 36415; 80053; 81003; 85025

== ENCOUNTER 2023-07-02 11:52 | Outpatient (CLI) | payer OTHER, SELFPAY ==
--- NOTE | 2023-07-02 12:05 | XR_ITS ---
WS: [id number] Lumbar spine, 3 views, 07/02/2023 Clinical Data: LOW BACK PAIN Comparison: Lumbar spine, 05/14/2023 Findings: The posterior lumbosacral fusion from L3-S1 remains stable. There are bilateral pedicle screws with c onnecting rods. There are oblique screws fusing the SI joints. There is an L5 laminectomy. There are artificial disc spacers at L4-L5 and L5-S1. Impression: Stable posterior lumbosacral fusion.
== END 2023-07-02 11:53 | disposition home or self-care (01) ==
PROVIDERS: PCP Nurse Practitioner Family; Visit Provider Nurse Practitioner Family
DX: M54.50 Low back pain, unspecified (principal); Z98.1 Arthrodesis status
CPT/HCPCS: 72100

== ENCOUNTER → 2023-07-29 08:29 | Outpatient (BNVA) | payer OTHER, SELFPAY | PROVIDERS: PCP Nurse Practitioner Family; Referring Provider Orthopaedic Surgery; Visit Provider Family Medicine | DX: Z01.818 Encounter for other preprocedural examination (principal) | CPT/HCPCS: 80053; 81003; 85025 ==

== ENCOUNTER 2023-08-17 17:33 | Inpatient (IN) | payer OTHER, SELFPAY ==
[2023-08-17] VITALS (32 sets, daily range): BP systolic 100–150; BP diastolic 56–94; PULSE 73–92; RESP 14–20; TEMP 36.1–36.8; O2SAT 89–100; BMI 31.1
--- NOTE | 2023-08-17 | XR_ITS ---
WS: [id number] Exam: XR lumbar spine 2-3V* [id number] Date/Time of Exam: 08/17/2023 12:00 AM Reason For Exam: revision L1 to pelvis Comparison 07/02/2023. Intraoperative AP and lateral images of the lumbar spine are submitted. A right-sided L4 pedicle scre w has been removed since the previous study. Posterior rods and pedicle screws bridge the spine from L3-S1. There are disc spacers at L4-5 and L5-S1. New additional screws bridge the bilateral SI joints in addition to pre-existing bilateral SI joint screws. IMPRESSION: 1. Posterior fusion from L3-S1. There has been some hardware revision since the prior study. See abov e discussion. Detail is limited on these intraoperative images.
[2023-08-17] MEDS: methadone 10 mg Tablet PO (08:36)
[2023-08-17] MEDS: sodium chloride 0.9% 1,000 ML 30 ML IV (08:37)
[2023-08-17] MEDS: vancomycin 1,000 MG in sodium chloride 0.9% 250 ML 250 MG IV (08:49)
--- NOTE | 2023-08-17 08:59 | ANES.PREANE2 ---
Pre-Anesthetic Assessment Height/Weight: Height 1.7 m Weight 90 kg Temp Pulse Resp BP Pulse Ox O2 Del Method 97.2 F L 84 16 150/88 98 Room Air 08/17/23 07:49 08/17/23 07:49 08/17/23 07:49 08/17/23 07:49 08/17/23 07:49 08/17/23 08:01 Preop Diagnosis: Sacroiliac joint arthritis, failed lumbar fusion Operation Date: 08/17/23 09:35 Proposed Procedures p Lumbar Laminectomy: revision L1 to the pelvis with open placement of sacroiliac joint screws(Not Applicable) - Alban Mccord DO s Sacroiliac Joint Fusion SI Joint Fusion(Not Applicable) - Alban Mccord DO Familial anesthetic complications: None Was Beta Odalis taken within 24 hours: N/A Was Clonidine taken within 24 hours: N/A Last intake: Intake Last Liquid Date 08/16/23 Last Liquid Time 20:00 Last Solid Date 08/16/23 Last Solid Time 19:00 Social Tobacco and No alcohol Exam alert and oriented x 3 Airway Dentition: full GI Gastroesophageal Reflux Disease Metabolic Hyperlipidemia Neuropsych Cerebrovascular Accident (post surgical in setting of smoking and OCP use) Anesthetic Plan ASA status: 3 Anesthesia: General Risk of > 500 ml blood loss (7ml/kg in children): No Medications/Allergies Home Medications Medication Instructions Recorded Confirmed Last Taken Type azelastine 137 mcg (0.1 %) nasal 1 spray intranasal BID 12/17/20 08/14/23 08/16/23 History spray aerosol fluticasone propionate 50 1 spray intranasal DAILY 12/17/20 08/14/23 08/16/23 History mcg/actuation nasal spray,suspension levocetirizine 5 mg tablet (Xyzal) 5 mg PO .twice daily 12/17/20 08/14/23 08/17/23 History cholecalciferol (vitamin D3) 125 125 mcg PO DAILY 09/16/22 08/14/23 07/29/23 History mcg (5,000 unit) tablet (Vitamin D3) cranberry 400 mg capsule 400 mg PO DAILY 09/16/22 08/14/23 07/29/23 History esomeprazole magnesium 40 mg 40 mg PO DAILY 09/16/22 08/14/23 08/17/23 History capsule,delayed release (Nexium) sertraline 25 mg tablet 25 mg PO DAILY 09/16/22 08/14/23 08/17/23 History Elderberry 200 mg PO DAILY 05/08/23 08/14/23 07/29/23 History gabapentin 300 mg capsule 300 mg PO TID 05/08/23 08/14/23 08/17/23 History bupropion HCl 150 mg tablet,12 hr 150 mg PO BID 07/14/23 08/14/23 08/17/23 History sustained-release (Wellbutrin SR) rosuvastatin 20 mg tablet 20 mg PO DAILY 07/14/23 08/14/23 08/16/23 History oxycodone 5 mg tablet 5 mg PO Q6H PRN pain 7 days #30 08/11/23 08/14/23 08/17/23 Rx tabs methocarbamol 750 mg tablet 750 mg PO BEDTIME PRN back pain 08/14/23 08/14/23 08/16/23 History Allergies Allergy/AdvReac Type Severity Reaction Status Date / Time cephalexin [From Keflex] Allergy Intermediate ALGY-Rash Verified 08/17/23 07:55 doxycycline Allergy unknown Verified 07/29/23 09:03 hydrocodone [From Vicodin] Allergy ADR-Headach Verified 07/29/23 09:03 e tramadol [From Ultram] Allergy unknown Verified 07/29/23 09:03 Current Medications Generic Name Dose Route Start Last Admin Trade Name Freq PRN Reason Stop Dose Admin Sodium Chloride 1,000 mls @ 30 mls/hr 08/17/23 07:45 08/17/23 08:37 Sodium Chloride 0.9% IV 08/18/23 07:44 30 mls/hr .Q24H OSIRIS Administration PFSH Anesthesia Medical History DDD (degenerative disc disease), lumbar Environmental allergies Lumbar stenosis with neurogenic claudication Surgical History H/O ovarian cystectomy H/O: hysterectomy Hx of appendectomy Hx of tonsillectomy Status post lumbar laminectomy Status post lumbar spinal fusion Family History Grandmother Dementia Cancer lung Father Hypertension Grandmother Hypertension Denies family history of Diabetes CAD (coronary artery disease) Chronic kidney disease (CKD) Lung disease Stroke Social History (Updated 07/29/23 @ 09:16 by Anni Madison MD) Smoking and tobacco/nicotine status: former use of tobacco/nicotine Alcohol intake: never Substance/Drug Use: never Adopted: No Caregiver/support person: No Lives independently: No Household members: spouse Marital status: service: No Current occupational status: unemployed and disabled Sexually active: Yes Do you think of yourself as: Straight/Heterosexual Current gender identity: Female Data Anesthesia Cardiac Studies: No Data to Display
--- NOTE | 2023-08-17 09:06 | W.PM.OPSUD ---
Surgery/Procedure H&P Update DATE OF PROCEDURE: August 17, 2023 DATE H&P PERFORMED: 07/29/23 H&P UPDATE INFORMATION: I have reviewed H&P completed within last 30 days, I have examined patient prior to procedure and No changes to prior documentation PREOP DIAGNOSIS: Sacroiliac joint arthritis, failed lumbar fusion PLANNED PROCEDURE: Operation Date: 08/17/23 09:35 Proposed Procedures p Lumbar Laminectomy: revision L1 to the pelvis with open placement of sacroiliac joint screws(Not Applicable) - Alban Mccord DO s Sacroiliac Joint Fusion SI Joint Fusion(Not Applicable) - Alban Mccord DO
[2023-08-17] MEDS: midazolam 1 mg/mL INJ 2 mL 2 MG IVP (09:15)
[2023-08-17] MEDS: lidocaine-epi 2% 20 mL INJ INJECTION (10:14)
[2023-08-17] MEDS: vancomycin 1,000 MG SDV 1000 MG XX (10:15)
[2023-08-17] MEDS: heparin, porcine 1,000 unit/mL INJ 10 mL 10000 UNIT IRRIGATION (10:16)
[2023-08-17] MEDS: thrombin 5,000 unit SDV 5000 UNIT XX (10:20)
--- NOTE | 2023-08-17 11:37 | PM.OP ---
Operative Report Date of procedure: August 17, 2023 Pre-op diagnosis: Nonunion lumbar fusion Post-op diagnosis: same Procedure done: 1. L2-pelvis posterior spine fusion 2. L2 - S1 instrumentation 3. Lumbopelvic insrumentation 4. Right open SI joint fusion 5. Left open SI joint fusion 6. use of computer navigation / stereotactic for spine 7. use of allograft 8. removal of deep hardware from spine Surgeon: Alban Mccord DO Electrician Journeyman Wireman: Isauro Sanford Electrician Journeyman Wireman: The surgical services coordinator, Isauro Sanford, ALEM was needed for his expertise under the microscope. He was important and necessary throughout the procedure to complete in a safe and timely manner. He assisted with patient positioning prepping and draping tissue retraction suctioning of the operative field protection of the dural sac and tissue closure Estimated blood loss (mL): 300 Procedure: 1. L2-pelvis posterior spine fusion 2. L2 - S1 instrumentation 3. Lumbopelvic insrumentation 4. Right open SI joint fusion 5. Left open SI joint fusion 6. use of computer navigation / stereotactic for spine 7. use of allograft 8. removal of deep hardware from spine 9. Bone marrow aspiration from right iliac crest Patient brought to the operative suite after undergoing anesthesia was placed in the prone position. All areas impingement well-padded. Patient was prepped and draped normal sterile fashion. Skin incision was made from L2 down to S1 area the previous incision was used. Subperiosteal dissection was made up from L2 out to the previous hardware and down to the sacrum. Once the screws were identified both sides the screw caps were removed from each screw and the rods were removed this was done bilaterally. Next tension was brought to removing the josé bilaterally. And then the previous L3 screw was removed. This was loose screw. Then the iliac screws were removed as well and then replaced with 10.5 mm screws. These were 80 x 10.5 mm screws. Next attention was brought to obtain bone marrow aspirate from the right iliac crest. This was done using the bone marrow aspiration system. This was later mixed with the osteo amp bone graft. Next the computer navigation was system was attached to the right iliac crest. This was done by placing 2 pins in the right iliac crest. These pins were later removed at the end of the case. Once the fiducial was attached the C-arm was brought in and spun around the patient information from the C-arm was then loaded and completed to facilitate placing screws. Next attention was brought to placing the open SI joint fusion screws. This was done using the computer navigation. The gearshift probe crossed the ala across the SI joint and into the iliac crest. This was then followed by placement of a wire and then over drilling of the hole. Ostium bone graft was packed into the hole and the SI joint fusion screw was then used to cross the SI joint. This was done both on the right and the left side. Next the S1 screws were placed back in. These are 7.5 instead of 6.5 as previously written. This was done on both the left and the right side. She was brought to the L2 level. The gearshift probe was used followed by the pedicle feeler followed by the placement of the screw. This was done on both the right and left side at L2. Next tension was brought to attaching the rods. The rods were attached from L2 down to the S1. And then also to the iliac screw. Completing the lumbopelvic fixation. This was done on both the right and left side and then the caps were torqued on to locked them down bilaterally. This was done at L2 through the iliac screw. Next attention was brought to decorticating the transverse processes and previous fusion mass. This was done followed by placement of the ostium bone graft in the lateral gutters. This was done bilaterally. Wounds were then closed in layered fashion with 0 Vicryl 2-0 Vicryl and Monocryl suture. Sterile dressings were applied patient was transferred to the PACU in stable condition.
[2023-08-17] MEDS: fentaNYL 50 mcg/mL INJ 2mL 100 MCG IVP (12:00)
[2023-08-17] MEDS: HYDROmorphone 1 mg/mL INJ 1 mL 0.5 MG IVP ×3 (12:10→15:09)
--- NOTE | 2023-08-17 12:35 | ANE.PACU2 ---
Inpatient post-anesthesia follow up: Airway intact: Yes Vital signs: Temperature 97.5 F Pulse Rate 74 Respiratory Rate 14 Blood Pressure 114/83 Pulse Oximetry 96 Oxygen Delivery Me thod Room Air Oxygen Flow Rate 8 Fraction of Inspir ed Oxygen Hydration adequate: Yes Nausea and vomiting: No Pain level: 1 Mental status: Baseline
[2023-08-17] MEDS: gabapentin 300 mg Capsule PO ×2 (15:09→22:18)
[2023-08-17] MEDS: ketorolac 30 mg/mL INJ IVP ×2 (15:42→22:26)
[2023-08-17] MEDS: ondansetron 2 mg/ML SDV 2 mL 4 MG IVP ×2 (16:59→20:57)
--- NOTE | 2023-08-17 17:00 | SUR.PHASEI ---
moderate relief of back pain. ROM and sensation in all 4 extremities.
[2023-08-17] MEDS: oxyCODONE-APAP 5-325 mg Tablet PO (18:17)
[2023-08-17] MEDS: buPROPion SR (12 HR) 150 mg Tablet PO (18:18)
[2023-08-17] MEDS: lactated ringers 1,000 ML 90 ML IV (18:18)
[2023-08-17] MEDS: docusate sodium 100 mg Capsule PO (18:18)
[2023-08-17] MEDS: morphine 4 mg/mL SDV 1 mL 2 MG IVP (20:56)
[2023-08-17] MEDS: vancomycin 1,750 MG/350 ML PIGGYBACK 200 MG IV (21:02)
[2023-08-17] MEDS: alum-mag-hydroxide-sime 30 mL UDC PO (21:11)
[2023-08-17] MEDS: methocarbamol 750 mg Tablet PO (22:18)
[2023-08-18] VITALS (9 sets, daily range): BP systolic 112–130; BP diastolic 67–74; PULSE 72–87; RESP 14–22; TEMP 36.2–36.8; O2SAT 92–97
[2023-08-18] MEDS: oxyCODONE-APAP 5-325 mg Tablet PO ×3 (00:34→11:43)
[2023-08-18] MEDS: promethazine 25 mg Tablet 12.5 MG PO (01:05)
[2023-08-18] MEDS: alum-mag-hydroxide-sime 30 mL UDC PO (01:06)
[2023-08-18] MEDS: lactated ringers 1,000 ML 90 ML IV (06:40)
--- NOTE | 2023-08-18 07:42 | P.PN_ITS ---
Subjective Subjective: POD 1 Patient resting comfortably. Mild back pain denies leg pain. Denies shortness of breath, chest pain, headaches. Vitals/I&O/Wt Last Vital Signs Temp 97.8 F 08/18/23 05:10 Pulse 75 08/18/23 05:10 Resp 16 08/18/23 06:46 BP 130/74 08/18/23 05:10 Pulse Ox 92 08/18/23 05:10 O2 Del Method Room Air 08/17/23 18:10 O2 Flow Rate 2 08/17/23 15:00 08/17/23 08/18/23 08/18/23 22:59 06:59 14:59 Intake Total 700 / 950 1350 / 2300 Output Total 700 / 1480 800 / 2280 Balance 0 / -530 550 / 20 Weight last 48 hrs Weight 198 lb 6.656 oz Physical Exam Narrative: Patient presents alert and oriented x3 with a good general appearance normal mood and affect. Normal coordination normal stability. Mild tenderness around the incisional site with the incision appear to be Clean and dry with Hemovac drain intact. No signs of erythema or drainage. No signs of infection. Patie nt denies any fevers or chills. 5/5 motor strength both lower extremities with negative straight leg raise bilaterally. Calves are supple no medial thigh tenderness. Pulses are 2+ at the dorsalis pedis and posterior tibial region. Good capillary refill throughout normal sensation light touch both lower extremities. Urinary Catheter Management: Fischer: Cath Placed During This Visit: yes, but has since been removed by the nurse Reason for Continuing Indwelling Catheter: Decision to DC Catheter Urinary Catheter Date of Insertion: 08/17/23 Urinary Catheter Time of Insertion: 09:45 Date Urinary Catheter Removed: 08/18/23 Time Urinary Catheter Discontinued: 03:47 A&P Assessment and plan (1) Status post lumbar spinal fusion: Encouraged her to continue walking program. Continue incentive spirometry for pulmonary toilet. Continue the abdominal binder for compression to the incisional region. Physical therapy to work with mobilization. If output from the Hemovac drain is below 50ml can discontinue. If she is progressing nicely we can discharge home later today or await discharge tomorrow. Attestations Medical Necessity Statement*: Gain better pain control hopeful discharge home today but possibly tomorrow. Coding Level of Care Code Acute Code for Chg Fwd Diagnoses Status post lumbar spinal fusion Z98.1
[2023-08-18] MEDS: vancomycin 1,750 MG/350 ML PIGGYBACK 200 MG IV (08:31)
[2023-08-18] MEDS: gabapentin 300 mg Capsule PO (08:32)
[2023-08-18] MEDS: buPROPion SR (12 HR) 150 mg Tablet PO (08:32)
[2023-08-18] MEDS: docusate sodium 100 mg Capsule PO (08:32)
[2023-08-18] MEDS: sertraline 50 mg Tablet 25 MG PO (08:32)
[2023-08-18] MEDS: pantoprazole DR 40 mg Tablet PO (08:33)
[2023-08-18] MEDS: cholecalciferol (vitamin D3) 5,000 unit Tablet 5000 UNIT PO (08:33)
[2023-08-18] MEDS: atorvastatin 40 mg Tablet 80 MG PO (08:33)
[2023-08-18] MEDS: fluticasone nasal spray 16gm Btl 1 SPRAY INTRANASAL (08:34)
--- NOTE | 2023-08-18 08:52 | PC.CHAP ---
Pastoral Care Encounter/Spiritual Assessment Type of Contact [] Declined hog confinement system manager visit [] Patient/Family/Request visit [] Outpatient visit [] Follow-up visit [] Physician referral [] Code/Alert [] Routine visit [] Staff referral [] Actively dying [] Patient sleeping [] Family support [] [] Out of room [] Palliative care [] [x] Receiving care in room [] Pre-surgical visit [] Trauma [] Long length of stay [] ICU visit [] Other: Relational/Emotional Strength [] Patient feels connected with others/family/visitors/staff [] Distress [] Loneliness/isolation [] Abandonment Spirituality of Patient [] Person of Hallie [] Attends Zoroastrian of their Hallie [] Believes in Prayer [] Reads Bible or Samaritan materials [] There are Spiritual issues to be addressed Television Audio Engineer Interventions [] Prayer [] Active listening [] Non-anxious presence [] Spiritual/emotional support [] Crisis/trauma care [] Spiritual counseling [] Bereavement support [] Provided bereavement packet [] Provided Bible/devotional materials [] Provided toy/stuffed animal, coloring book to patient or family member [] Provided Communion [] Anointing/Rochelle [] Salvation [] Completed spiritual assessment [] Other: Impact on Illness or Injury [] Angry [] Fearful [] Anxious [] Often cries [] Exhaustion [] Unable to work [] Unable to attend orthodoxy [] Unable to walk/stand [] Unable to read [] Unable to drive [] Unable to eat/drink [] Unable to sleep [] Unable to be with family [] Patient intubated [] Other: Summary Time spent with patient
[2023-08-18] MEDS: ketorolac 30 mg/mL INJ IVP (08:59)
[2023-08-18] MEDS: HYDROmorphone 1 mg/mL INJ 1 mL 0.5 MG IVP (10:20)
[2023-08-18 12:36] LABS: Glucose Point of Care 160 mg/dL (70-110)
--- NOTE | 2023-08-18 13:53 | PC.NURSE ---
Discussed discharge new medications, continued medications, instructions for post op surgery and follow up appointment. Patient and spouse verbalized understanding.
--- NOTE | 2023-08-19 11:48 | PM.DCS ---
Discharge Providers Date of Admission: 08/17/23 17:33 Date of Discharge: August 18, 2023 Attending Provider at Admission: Alban Mccord DO Attending Provider at Discharge: Alban Mccord DO Primary Care Provider: Blanche Ferrera NP Diagnoses at Discharge Discharge Diagnosis (1) Status post lumbar spinal fusion: Status: Acute Reason for Visit Reason for Visit: 87693 M48.062 Physical Exam Urinary Catheter Management: Fischer: Cath Placed During This Visit: yes, but has since been removed by the nurse Reason for Continuing Indwelling Catheter: Decision to DC Catheter Urinary Catheter Date of Insertion: 08/17/23 Urinary Catheter Time of Insertion: 09:45 Date Urinary Catheter Removed: 08/18/23 Time Urinary Catheter Discontinued: 03:47 Discharge Data Studies Completed and Pending Completed Studies During Hospitalization Category Date Time Status XR lumbar spine 2-3V* [id number] Routine Exams 08/17/23 Completed Pending at discharge Category Date Time Status C-arm Fluoroscopy [id number] Routine Exams 08/17/23 07:39 Taken Laboratory Results POC Glucose 160 mg/dL (70-110) H 08/18/23 12:28 Vitals Last Vital Signs Temp 97.9 F 08/18/23 15:37 Pulse 72 08/18/23 15:37 Resp 20 H 08/18/23 15:37 BP 118/73 08/18/23 15:37 Pulse Ox 97 08/18/23 15:37 O2 Del Method Room Air 08/17/23 18:10 O2 Flow Rate 2 08/17/23 15:00 Discharge Plan Discharge Patient Disposition: Home Condition: Stable Prescriptions: New oxycodone 5 mg tablet 5 - 10 mg PO Q4H PRN (Reason: pain) 7 Days Qty: 40 0RF Continued levocetirizine [Xyzal] 5 mg tablet 5 mg PO .twice daily azelastine 137 mcg (0.1 %) aerosol,spray 1 spray intranasal BID Rx Instructions: administer into each nostril fluticasone propionate 50 mcg/actuation spray,suspension 1 spray intranasal DAILY Rx Instructions: administer into each nostril bupropion HCl [Wellbutrin SR] 150 mg tablet sustained-release 12 hr 150 mg PO BID rosuvastatin 20 mg tablet 20 mg PO DAILY oxycodone 5 mg tablet 5 mg PO Q6H PRN (Reason: pain) 7 Days Qty: 30 0RF esomeprazole magnesium [Nexium] 40 mg Capsule,Delayed Release(Dr/Ec) 40 mg PO DAILY cranberry 400 mg Capsule 400 mg PO DAILY Rx Instructions: administer with a meal sertraline 25 mg Tablet 25 mg PO DAILY cholecalciferol (vitamin D3) [Vitamin D3] 125 mcg (5,000 unit) Tablet 125 mcg PO DAILY gabapentin 300 mg Capsule 300 mg PO TID Elderberry 200 mg PO DAILY methocarbamol 750 mg tablet 750 mg PO BEDTIME PRN (Reason: back pain) Discharge Orders: Discharge Order (Routine); Ordered 08/18/23 Ordered By: Isauro Sanford Referrals: Alban Mccord DO [Physician] - 08/25/23 2:15 pm () Discharge Diet: Advance as tolerated Discharge Activity: Limit activity as instructed Patient Instructions: Oxycodone, Rapid Release (By mouth), Lumbar Spinal Fusion (GEN), Laminectomy (GEN), Opioid Safety Activity Restrictions/Additional Instructions: Thank you for choosing [facility] for your care! The following is a list of instructions, from your provider, to follow upon your discharge to ensure you have the optimal recovery from your recent injury or surgery. Follow-up care is a hensley part of your treatment and safety. Be sure to make and go to all appointments and call your doctor if you are having problems. If you do not already have a follow-up appointment made, call Dr. Mccord's] office in the next 1-3 days to make follow up appointment for [1-2] weeks at [phone]. It is also a good idea to know your test results and keep a list of the medicines you take. Medications will be prescribed for you at your provider's discretion. These medications are to be used as instructed; if they are taken more often that prescribed they will not be refilled early and in most cases will not be refilled at all. > When a refill is needed, you should contact prudencio sanchez 2-3 business days before your prescription runs out. Medications will NOT be refilled by television operator providers after hours! > Many pain medications contain Tylenol (Acetaminophen). Do not consume more than 4,000 mg of Tylenol per day in total with any combination of medications. > Pain medications can cause constipation. Please use an over the counter stool softener as directed, while taking pain medications. Consult your local pharmacist with questions or recommendations on stool softeners. If constipation persists, contact our office or your primary care provider. > While under our care, you are not to receive pain medications or other controlled substances from any other provider unless our office is notified and approves. Any attempts to do so will result in refusal to prescribe any further pain medications and possible dismissal from our practice. ? Walking is essential for the healing process after surgery. We would like you to slowly advance your walking. This should be done on relatively flat clear ground (inside or out) or can be done on a treadmill. Remember this goal does not have to happen all at once, slowly increase your distance and duration. This can be broken into more more than one walk per day as tolerated. Patients who walk as directed after surgery rarely require Physical Therapy. In the unlikely event this issue arises your provider will direct hospital staff to make the appropriate arrangements. ? No lifting over 5 pounds {a gallon of milk) or bending/twisting until further notice. Each of these activities places an unnecessary amount of stress onto the body and can impede the delicate healing process. > Instead of bending at the waist, keep your back straight and bend at the knees. > Instead of twisting your torso, keep your back straight and turn your entire body with your feet. ? You may sleep in any position which makes you comfortable. Many patients find comfort sleeping in a reclining chair. It is not abnormal to have difficulty sleeping for the first several weeks following your surgery. We recommend trying Benadry! or Tylenol PM as directed to help with your sleeping difficulties. Both medications are over the counter and available without prescription. ? NO SMOKING!!! Smoking dramatically increases the probability of developing postoperative wound infections. ? Common complaints after lumbar and/or thoracic spine surgery include, but are not limited to: numbness and/or tingling in the legs, pain around the incision and surrounding tissues, muscle spasms, or stiffness of the middle to low back. Contact our office if these symptoms persist or if an acute change occurs. ? No driving for the first 3-5days, and not while taking narcotics until seen at your follow-up appointment and cleared. There are no restrictions for riding on short trips, however if you take a longer trip, arrangements should be made to make regular stops to get out of the vehicle and stretch . ? Swelling is an unfortunate event that will take place with any surgery and is the primary source of your postoperative discomfort. While walking and regular approved activities helps control inflammation, there are additional steps you can take to minimize swelling. > Place ice over the surgical site and surrounding tissue for twenty minutes, followed by applying a low/medium heat (heating pad) for an additional twenty minutes every 1-2 hours as needed for painrelief. > You may use of over the counter anti-inflammatory medications (Ibuprofen, Motrin, Aleve, Advil, etc) as directed on the package label. These types of medicines will significantly reduce the amount of discomfort you experience after surgery from swelling. It should be noted that if you have and allergy to any of these medications, or a history of ulcers or kidney disease you should consult you primary care provider prior to starting these medications. Discharge Attestations Time Spent in Discharge Care*: less than 30 min Quality Metrics Clinical Quality Measures [ No reported AMI, CVA or VTE this stay] Coding Level of Care Code Acute Code for Chg Fwd Diagnoses Status post lumbar spinal fusion Z98.1
== END 2023-08-18 15:39 | disposition home or self-care (01) | DRG 455 ==
LOC: MEDSURG 17:33
PROVIDERS: Admitting Provider Orthopaedic Surgery; PCP Nurse Practitioner Family; Visit Provider Orthopaedic Surgery
PROC: 0SG107J Fusion of 2 or more Lumbar Vertebral Joints with Autologous Tissue Substitute, Posterior Approach, Anterior Column, Open Approach (ICD-10-PCS; principal; 2023-08-17 09:25)
PROC: 0SG107J Fusion of 2 or more Lumbar Vertebral Joints with Autologous Tissue Substitute, Posterior Approach, Anterior Column, Open Approach (ICD-10-PCS; CPT 27280; 2023-08-17 09:25)
DX: T84.226A Displacement of internal fixation device of vertebrae, initial encounter (principal); Y79.8 Miscellaneous orthopedic devices associated with adverse incidents, not elsewhere classified; M51.36 Other intervertebral disc degeneration, lumbar region; Z98.1 Arthrodesis status; F17.210 Nicotine dependence, cigarettes, uncomplicated; M47.818 Spondylosis without myelopathy or radiculopathy, sacral and sacrococcygeal region; Z79.891 Long term (current) use of opiate analgesic
CPT/HCPCS: 36416; 51702; 72100; 76000; 82962; 97162; C1713; J0131; J0330; J1100; J1170; J1644; J1885; J2250; J2270; J2371; J2405; J2704; J3010; J3370; J3372; J3490; J7030; J7050; J7120; Q0169

== ENCOUNTER → 2023-09-01 09:28 | Outpatient (BNVA) | payer OTHER, SELFPAY | PROVIDERS: PCP Nurse Practitioner Family; Visit Provider Orthopaedic Surgery | DX: Z98.1 Arthrodesis status (principal) | CPT/HCPCS: 72100 ==

== ENCOUNTER → 2023-10-01 14:00 | Outpatient (BNVA) | payer OTHER, SELFPAY | PROVIDERS: PCP Nurse Practitioner Family; Visit Provider Physician Assistant | DX: Z98.1 Arthrodesis status (principal); Z47.89 Encounter for other orthopedic aftercare; M70.62 Trochanteric bursitis, left hip | CPT/HCPCS: 72100 ==

== ENCOUNTER → 2023-11-13 07:56 | Outpatient (BNVA) | payer OTHER, SELFPAY | PROVIDERS: PCP Nurse Practitioner Family; Visit Provider Orthopaedic Surgery | DX: Z98.1 Arthrodesis status (principal); Z47.89 Encounter for other orthopedic aftercare | CPT/HCPCS: 72100 ==

== ENCOUNTER → 2023-12-24 14:23 | Outpatient (BNVA) | payer OTHER, SELFPAY | PROVIDERS: PCP Nurse Practitioner Family; Referring Provider Emergency Medicine; Visit Provider Internal Medicine | DX: R07.9 Chest pain, unspecified (principal) | CPT/HCPCS: 93005 ==

== ENCOUNTER → 2023-12-31 11:08 | Outpatient (BNVA) | payer OTHER, SELFPAY | PROVIDERS: PCP Nurse Practitioner Family; Visit Provider Orthopaedic Surgery | DX: Z98.1 Arthrodesis status (principal) | CPT/HCPCS: 72100 ==

== ENCOUNTER 2024-01-04 13:58 | Outpatient (CLI) | payer OTHER, SELFPAY ==
--- NOTE | 2024-01-04 14:30 | USCV_ITS ---
Princess Tobar Age: 48 Gender: F : 1975 Exam Date: 01/04/2024 14:27 Ordering Phys: Maurice James M.D ([email or web address]) Technologist: ELIEZER Exam Location: [facility] – [place] Indication: SOB, arrhythmia, cp BP: 155 / 89 HR: 166 Rhythm: Sinus Technical Quality: Adequate MEASUREMENTS (Male / Female) Normal Values 2D ECHO LV Diastolic Diameter PLAX 4.5 cm 4.2 - 5.9 / 3.9 - 5.3 cm IVS Diastolic Thickness 1.1 cm 0.6 - 1.0 / 0.6 - 0.9 cm IVS Systolic Thickness 1.5 cm LVPW Diastolic Thickness 0.9 cm 0.6 - 1.0 / 0.6 - 0.9 cm LVPW Systolic Thickness 1.7 cm LVOT Diameter 2.0 cm LV Ejection Fraction 2D Teich 83.8 % LV Ejection Fraction MOD 2C 66.1 % LV Ejection Fraction 2C AL 67.3 % LA Diameter 2.5 cm RA Systolic Volume 4C AL 25.0 ml RA Systolic Volume 4C MOD 25.6 ml Aorta at Sinotubular Diameter 3.1 cm IVC Diameter 1.8 cm M-MODE LA Ao Ratio MM 1.2 AV Cusp Separation MM 1.1 cm DOPPLER AV Peak Velocity 133.0 cm/s LVOT Peak Velocity 63.0 cm/s AV Area Cont Eq vti 1.8 cm squared AV Area Cont Eq pk 1.5 cm squared MV Peak Velocity 104.0 cm/s MV Area PHT 3.2 cm squared Mitral E to A Ratio 1.3 TR Peak Velocity 103.5 cm/s TR Peak Gradient 4.3 mmHg TR Mean Velocity 74.0 cm/s TR Mean Gradient 2.4 mmHg TR Velocity Time Integral 22.8 cm Right Atrial Pressure 3.0 mmHg Pulmonary Artery Systolic Pressu 7.3 mmHg PV Peak Velocity 99.5 cm/s RV Ejection Time 0.3 s FINDINGS Left Ventricle Left ventricle is normal in size. LV systolic function is normal with EF 55 to 60%. No regional wall motion abnormalities are seen. Right Ventricle Normal in size and function Right Atrium Normal in size Left Atrium Normal in size Mitral Valve Structurally normal mitral valve. Trace mitral regurgitation. Aortic Valve Structurally normal aortic valve. No significant stenosis or regurgitation. Tricuspid Valve Mild tricuspid regurgitation. Insufficient TR jet to calculate RVSP. Pulmonic Valve Not well visualized Pericardium Normal Aorta Normal in size IVC Appears to be normal CONCLUSIONS LV systolic function is normal with EF of 55-60% Trace mitral regurgitation Mild tricuspid regurgitation No comparison studies are available. Maurice James MD (Electronically Signed) Final Date: 10 January 2024 12:26 S
== END 2024-01-04 13:59 | disposition home or self-care (01) ==
LOC: RAD 13:59
PROVIDERS: PCP Nurse Practitioner Family; Visit Provider Internal Medicine
DX: R07.9 Chest pain, unspecified (principal); R06.02 Shortness of breath; I07.1 Rheumatic tricuspid insufficiency
CPT/HCPCS: 93306

== ENCOUNTER 2024-01-07 10:06 | Outpatient (RCR) | payer OTHER, SELFPAY | END 2024-02-02 23:59 | disposition home or self-care (01) | LOC: SPT 10:06 | PROVIDERS: PCP Nurse Practitioner Family; Visit Provider Orthopaedic Surgery | DX: Z98.1 Arthrodesis status (principal) | CPT/HCPCS: 97110; 97161 ==

== ENCOUNTER → 2024-02-11 11:11 | Outpatient (BNVA) | payer OTHER, SELFPAY | PROVIDERS: PCP Nurse Practitioner Family; Visit Provider Orthopaedic Surgery | DX: Z98.1 Arthrodesis status (principal); M48.062 Spinal stenosis, lumbar region with neurogenic claudication | CPT/HCPCS: 72100 ==

== ENCOUNTER → 2024-03-22 08:39 | Outpatient (BNVA) | payer OTHER, SELFPAY | PROVIDERS: PCP Nurse Practitioner Family; Visit Provider Orthopaedic Surgery | DX: Z98.1 Arthrodesis status (principal) | CPT/HCPCS: 72100 ==

== ENCOUNTER → 2024-04-21 17:53 | Outpatient (BNVA) | payer OTHER, SELFPAY | PROVIDERS: PCP Nurse Practitioner Family; Visit Provider Specialist | DX: G57.80 Other specified mononeuropathies of unspecified lower limb (principal); Z98.1 Arthrodesis status; G60.9 Hereditary and idiopathic neuropathy, unspecified | CPT/HCPCS: 36415; 82607; 82746; 83520; 83921; 84443; 85651; 86140; 86334; 86431 ==

== ENCOUNTER → 2024-07-21 10:33 | Outpatient (BNVA) | payer OTHER, SELFPAY | PROVIDERS: PCP Nurse Practitioner Family; Visit Provider Specialist | DX: G60.9 Hereditary and idiopathic neuropathy, unspecified (principal) | CPT/HCPCS: 36415; 83036 ==

== ENCOUNTER → 2024-07-26 10:21 | Outpatient (BNVA) | payer OTHER, SELFPAY | PROVIDERS: PCP Nurse Practitioner Family; Visit Provider Orthopaedic Surgery | DX: Z98.1 Arthrodesis status (principal); M79.672 Pain in left foot | CPT/HCPCS: 72100; 73630 ==

== ENCOUNTER → 2024-11-10 13:47 | Outpatient (BNVA) | payer MEDICARE, OTHER, SELFPAY | PROVIDERS: PCP Nurse Practitioner Family; Visit Provider Orthopaedic Surgery | DX: Z98.1 Arthrodesis status (principal) | CPT/HCPCS: 72110; 99213 ==

== ENCOUNTER → 2024-12-01 09:59 | Outpatient (BNVA) | payer MEDICARE, SELFPAY | PROVIDERS: PCP Nurse Practitioner Family; Visit Provider Orthopaedic Surgery | DX: M48.062 Spinal stenosis, lumbar region with neurogenic claudication (principal); Z98.1 Arthrodesis status | CPT/HCPCS: 99213 ==

== ENCOUNTER → 2024-12-05 08:59 | Outpatient (BNVA) | payer MEDICARE, SELFPAY | PROVIDERS: PCP Nurse Practitioner Family; Visit Provider Podiatrist Foot & Ankle Surgery | DX: M76.72 Peroneal tendinitis, left leg (principal); M77.52 Other enthesopathy of left foot and ankle; M21.622 Bunionette of left foot | CPT/HCPCS: 99213 ==

== ENCOUNTER 2024-12-13 09:38 | Outpatient (CLI) | payer MEDICARE, SELFPAY ==
--- NOTE | 2024-12-13 10:00 | CT_ITS ---
WS: [id number] CT LUMBAR SPINE TECHNIQUE: Noncontrast CT of the lumbar spine with coronal and sagittal reformatted images. CLINICAL INFORMATION: Lumbar pain COMPARISON: None. DLP: 1222.[address] scans at [facility] use at least one of these dose optimization techniques: automated exposure control; mA and/or kV adjustment per patient size (includes targeted exams where dose is matched to clinical indication); or iterative reconstruction. FINDINGS: Postoperative changes pedicle screw fixation L2-S1. Interbody fusion graft L4-L5 and L5-S1. Interconnecting rods appear intact. Bilateral sacroiliac fixation screws. Lucency along the L2 pedicle screws suspicious for loosening. Lung bases are well aerated. Revision of the L3 pedicle screws with RIGHT unilateral pedicle screw. L2 pedicle screws are new compared to previous Small LEFT adrenal adenoma. L1-L2: Normal. L2-L3: Lucency along the L2 pedicle screws L3-L4: Mild annular bulging. Spinal canal and foramen are patent. Hemilaminectomy defects. Slight narrowing of the LEFT subarticular recess. L4-L5: Interbody fusion. Mild LEFT bony foraminal narrowing. Laminectomy defects. Narrowing of the LEFT L4-5 subarticular recess L5-S1: Interbody fusion. Osteophytic ridging. Narrowing of the subarticular recess bilaterally. Mild bilateral bony foraminal narrowing. Visualized pelvic bony structures: Normal. Paravertebral soft tissues: Normal. CT/CT lumbar spine wo con* [id number] IMPRESSION: 1. No hardware loosening. 2. Interval revision of the L3 pedicle screws with unilateral RIGHT L3 pedicle screw. Interbody fusion grafts at L4-L5 and L5-S1. Bilateral sacroiliac fixati on screws. 3. Lucency along the L2 pedicle screws 4. Narrowing of the LEFT L4-5 subarticular recess with mild LEFT foraminal linda rowing. 5. Narrowing of the subarticular recess L5-S1 due to osteophytic ridging worse on the LEFT. Mild LEFT greater than RIGHT proximal foraminal narrowing. 6. No significant central canal stenosis.
[2024-12-13 13:49] LABS: Basophils % 0.7 %; Eosinophils # 0.2 10^3/uL (0.0-0.8); Eosinophils % 2.7 %; Hematocrit 39.6 % (36-47); Lymphocytes # 1.8 10^3/uL (0.8-4.8); Lymphocytes % 32.7 %; Mean Corpuscular HGB Conc 31.3 g/dL (30-55); Mean Corpuscular Volume 86.1 fl (85-98); Mean Platelet Volume 10.3 fL (7.4-10.4); Monocytes # 0.9 10^3/uL (0.2-0.9); Monocytes % 15.6 %; Neutrophils % 47.9 %; Nucleated Red Blood Cells % 0 %; Platelet Count 239 10^3/cmm (157-399); Red Cell Distribution Width 13.5 % (12.1-15.1); White Blood Count 5.63 10^3/uL (3.29-11.43)
[2024-12-13 13:53] LABS: Bilirubin Urine Negative (Negative); Blood Urine Negative (Negative); Glucose Urine UA Negative (Normal); Ketones Urine Negative (Negative); Leukocyte Esterase Urine Negative (Negative); Nitrate Urine Negative (Negative); Protein Urine Negative (Negative); Specific Gravity, Urine 1.008 (1.005-1.030); Urine Appearance Clear (CLEAR); Urine Color Yellow (Yellow); Urobilinogen Urine 0.2 mg/dL (Negative); pH Urine 6.5 (5-7)
[2024-12-13 13:56] LABS: Add Urine Microscopic? YES; Bacteria Urine None Seen /hpf; Hyaline Casts Urine 0-4 /lpf; RBC Urine 0-2 /hpf (0-2); Squamous Epithelial Cell Urine 0-5 /hpf (0-5); WBC Urine 0-5 /hpf (0-5)
[2024-12-13 14:12] LABS: Alanine Aminotransferase 17 U/L (0-33); Albumin Level 4.4 g/dL (3.5-5.2); Alkaline Phosphatase 119 U/L (35-105); Anion Gap 15.5 (5-19); Aspartate Amino Transferase 18 U/L (0-32); Blood Urea Nitrogen 11 mg/dL (6-20); Calcium 9.6 mg/dL (8.5-10.5); Carbon Dioxide 27 mmol/L (22-29); Chloride 102 mmol/L (98-107); Globulin 3.2 g/dL (1.3-4.6); Glomerular Filtration Rate 76.2 mL/min (90-130); Glucose 86 mg/dL (65-115); Osmolality Calculated 289 mOsm/kg (285-295); Potassium 4.5 mmol/L (3.5-5.1); Sodium 140 mmol/L (136-145); Total Bilirubin 0.4 mg/dL (0.15-1.2); Total Protein 7.6 g/dL (6.6-8.7)
== END 2024-12-13 09:39 | disposition home or self-care (01) ==
LOC: RAD 09:41
PROVIDERS: PCP Nurse Practitioner Family; Visit Provider Orthopaedic Surgery
DX: Z01.818 Encounter for other preprocedural examination (principal); M48.062 Spinal stenosis, lumbar region with neurogenic claudication; Z98.1 Arthrodesis status; Z98.890 Other specified postprocedural states; R93.7 Abnormal findings on diagnostic imaging of other parts of musculoskeletal system; M48.07 Spinal stenosis, lumbosacral region; D35.02 Benign neoplasm of left adrenal gland; M51.369 Other intervertebral disc degeneration, lumbar region without mention of lumbar back pain or lower extremity pain; M96.89 Other intraoperative and postprocedural complications and disorders of the musculoskeletal system; M25.78 Osteophyte, vertebrae
CPT/HCPCS: 36415; 72131; 80053; 81001; 85025; 99214

== ENCOUNTER 2025-01-18 05:30 | Day surgery (SDC) | payer MEDICARE, SELFPAY ==
[2025-01-18] VITALS (17 sets, daily range): BP systolic 101–145; BP diastolic 74–99; PULSE 68–94; RESP 16–19; TEMP 36.1–36.9; O2SAT 90–100; BMI 32.8
[2025-01-18] MEDS: sodium chloride 0.9% 1,000 ML 30 ML IV (06:22)
[2025-01-18] MEDS: scopolamine 1 mg PATCH 1 PATCH TRANSDERMA (06:22)
--- NOTE | 2025-01-18 06:27 | W.PM.OPSUD ---
Surgery/Procedure H&P Update DATE OF PROCEDURE: January 18, 2025 DATE H&P PERFORMED: 12/13/24 H&P UPDATE INFORMATION: I have reviewed H&P completed within last 30 days, I have examined patient prior to procedure and No changes to prior documentation PREOP DIAGNOSIS: Painful orthopedic hardware in his lumbar spine PLANNED PROCEDURE: Operation Date: 01/18/25 07:00 Proposed Procedures p Hardware Removal Back(Not Applicable) - Alban Mccord DO
--- NOTE | 2025-01-18 06:36 | ANES.PREANE2 ---
Pre-Anesthetic Assessment Height/Weight: Height 1.7 m Weight 95.254 kg Temp O2 Del Method 97.0 F L Room Air 01/18/25 06:06 01/18/25 06:06 Preop Diagnosis: Painful orthopedic hardware in his lumbar spine Operation Date: 01/18/25 07:00 Proposed Procedures p Hardware Removal Back(Not Applicable) - Alban Mccord DO Last intake: Intake Last Liquid Date 01/17/25 Last Liquid Time 20:00 Last Solid Date 01/17/25 Last Solid Time 20:00 Social No alcohol and No tobacco (quit 2022) Exam alert, oriented x 3, clear to auscultation bilaterally and regular rate & rhythm Airway Submandibular: within normal limits Cervical ROM: within normal limits Mallampati: Class II CV/HEM Arrythmia Anesthetic Plan ASA status: 3 Anesthesia: General Medications/Allergies Home Medications ?Medication ?Instructions ?Recorded ?Confirmed ?Last Taken ?Type azelastine 137 mcg (0.1 %) nasal 1 spray intranasal BID 12/17/20 01/06/25 08/16/23 History spray levocetirizine 5 mg tablet (Xyzal) 5 mg PO .twice daily 12/17/20 01/18/25 01/18/25 History cholecalciferol (vitamin D3) 125 125 mcg PO DAILY 09/16/22 01/06/25 01/05/25 History mcg (5,000 unit) tablet (Vitamin D3) cranberry fruit 400 mg capsule 400 mg PO DAILY 09/16/22 01/18/25 01/17/25 History esomeprazole magnesium 40 mg 40 mg PO DAILY 09/16/22 01/18/25 01/18/25 History capsule,delayed release (Nexium) Elderberry 200 mg PO DAILY 05/08/23 01/18/25 01/17/25 History rosuvastatin 20 mg tablet 20 mg PO DAILY 07/14/23 01/18/25 01/17/25 History oxycodone 5 mg tablet 5 mg PO Q6H PRN pain 7 days #28 07/05/24 01/18/25 01/17/25 Rx tabs duloxetine 30 mg capsule,delayed 30 mg PO DAILY #30 caps 07/21/24 01/18/25 01/18/25 Rx release metoprolol tartrate 50 mg tablet 50 mg PO BID #180 tabs 08/15/24 01/18/25 01/18/25 Rx tizanidine 4 mg tablet 4 mg PO DAILY Muscles at bedtime 09/05/24 01/18/25 01/17/25 History gabapentin 300 mg capsule 300 mg PO BID 12/01/24 01/18/25 01/17/25 History meloxicam 15 mg tablet 15 mg PO DAILY 1 month #30 tabs 12/05/24 01/18/25 12/30/24 Rx bupropion HCl 150 mg tablet,12 hr 150 mg PO QAM 12/13/24 01/06/25 01/05/25 History sustained-release (Wellbutrin SR) Allergies Allergy/AdvReac Type Severity Reaction Status Date / Time cephalexin (From Keflex) Allergy Intermediate ALGY-Rash Verified 01/18/25 06:20 doxycycline Allergy unknown Verified 01/18/25 06:20 hydrocodone (From Vicodin) Allergy ADR-Headach Verified 01/18/25 06:20 e tramadol (From Ultram) Allergy unknown Verified 01/18/25 06:20 Current Medications Generic Name Dose Route Start Last Admin Trade Name Freq PRN Reason Stop Dose Admin Sodium Chloride 1,000 mls @ 30 mls/hr 01/18/25 06:00 01/18/25 06:22 Sodium Chloride 0.9% IV 01/19/25 05:59 30 mls/hr .Q24H OSIRIS Administration PFSH Anesthesia Medical History DDD (degenerative disc disease), lumbar Lumbar stenosis with neurogenic claudication Environmental allergies Surgical History H/O: hysterectomy Hx of appendectomy H/O ovarian cystectomy Hx of tonsillectomy Status post lumbar spinal fusion Status post lumbar laminectomy Family History Grandmother Dementia Cancer lung Father Hypertension Grandmother Hypertension Denies family history of Diabetes CAD (coronary artery disease) Chronic kidney disease (CKD) Lung disease Stroke Social History Smoking and tobacco/nicotine status: former use of tobacco/nicotine Alcohol intake: never Substance/Drug Use: never Adopted: No Caregiver/support person: No Lives independently: No Household members: spouse Marital status: service: No Current occupational status: unemployed and disabled Sexually active: Yes Do you think of yourself as: Straight/Heterosexual Current gender identity: Female Data Anesthesia Cardiac Studies: Echocardiogram 01/04/24
[2025-01-18] MEDS: clindamycin 600 MG/50 ML PREMIX 100 MG IV (06:58)
--- NOTE | 2025-01-18 07:06 | W.PM.OPSFHP ---
Same Day Surgery H&P Indication for Procedure/HPI DATE OF PROCEDURE: January 18, 2025 CHIEF COMPLAINT/INDICATIONFOR SURGICAL PROCEDURE: Low back pain PREOP DIAGNOSIS: Painful orthopedic hardware in his lumbar spine PLANNED PROCEDURE: Operation Date: 01/18/25 07:00 Proposed Procedures p Hardware Removal Back(Not Applicable) - Alban Mccord, DO Medications/Allergies* Home Medications ?Medication ?Instructions ?Recorded ?Confirmed ?Type azelastine 137 mcg (0.1 %) nasal 1 spray intranasal BID 12/17/20 01/06/25 History spray levocetirizine 5 mg tablet (Xyzal) 5 mg PO .twice daily 12/17/20 01/18/25 History cholecalciferol (vitamin D3) 125 125 mcg PO DAILY 09/16/22 01/06/25 History mcg (5,000 unit) tablet (Vitamin D3) cranberry fruit 400 mg capsule 400 mg PO DAILY 09/16/22 01/18/25 History esomeprazole magnesium 40 mg 40 mg PO DAILY 09/16/22 01/18/25 History capsule,delayed release (Nexium) Elderberry 200 mg PO DAILY 05/08/23 01/18/25 History rosuvastatin 20 mg tablet 20 mg PO DAILY 07/14/23 01/18/25 History tizanidine 4 mg tablet 4 mg PO DAILY Muscles at bedtime 09/05/24 01/18/25 History gabapentin 300 mg capsule 300 mg PO BID 12/01/24 01/18/25 History bupropion HCl 150 mg tablet,12 hr 150 mg PO QAM 12/13/24 01/06/25 History sustained-release (Wellbutrin SR) Allergies/Adverse Reactions Allergy/AdvReac Type Severity Reaction Status Date / Time cephalexin (From Keflex) Allergy Intermediate ALGY-Rash Verified 01/18/25 06:20 doxycycline Allergy unknown Verified 01/18/25 06:20 hydrocodone (From Vicodin) Allergy ADR-Headach Verified 01/18/25 06:20 e tramadol (From Ultram) Allergy unknown Verified 01/18/25 06:20 Current Medications: Generic Name Dose Route Start Last Admin Trade Name Freq PRN Reason Stop Dose Admin Sodium Chloride 1,000 mls @ 30 mls/hr 01/18/25 06:00 01/18/25 06:22 Sodium Chloride 0.9% IV 01/19/25 05:59 30 mls/hr .Q24H OSIRIS Administration Pertinent History/Comorbid Conditions* Medical History (Updated 04/21/24 @ 19:00 by Deirdre Bridges MD) DDD (degenerative disc disease), lumbar Lumbar stenosis with neurogenic claudication Environmental allergies Surgical History (Updated 12/25/23 @ 00:02 by BRIANA Goncalves) H/O: hysterectomy Hx of appendectomy H/O ovarian cystectomy Hx of tonsillectomy Status post lumbar spinal fusion Status post lumbar laminectomy Family History (Updated 11/25/22 @ 10:14 by Nichole Cameron LPN) Grandmother Dementia Grandmother Cancer Grandmother lung Hypertension Father Grandmother Denies family history of Diabetes CAD (coronary artery disease) Chronic kidney disease (CKD) Lung disease Stroke Social History Smoking and tobacco/nicotine status: former use of tobacco/nicotine Alcohol intake: never Substance/Drug Use: never Adopted: No Caregiver/support person: No Lives independently: No Household members: spouse Marital status: service: No Current occupational status: unemployed and disabled Sexually active: Yes Do you think of yourself as: Straight/Heterosexual Current gender identity: Female Pertinent Exam Findings alert, oriented x 3 and procedure specific exam findings Recommendations Risks and benefits of procedure reviewed Surgery/Procedure today Other Plans: Plan to remove iliac and L2 screws Coding Level of Care Code Acute Code for Danutag Fwd
[2025-01-18] MEDS: lidocaine-epi 1% 20 mL INJ 10 ML INJECTION (07:34)
[2025-01-18] MEDS: VANCOMYCIN ADD-Vantage 1,000 MG VIAL 1000 MG XX (07:35)
--- NOTE | 2025-01-18 08:26 | PM.OP ---
Operative Report Date of procedure: January 18, 2025 Pre-op diagnosis: Painful orthopedic hardware lumbar spine Post-op diagnosis: same Procedure done: Removal of the deep hardware from lumbar spine Surgeon: Alban Mccord DO Estimated blood loss (mL): 25 Procedure: Removal deep hardware from lumbar spine Patient brought the operative suite after undergoing anesthesia patient was placed in the prone position. All areas impingement well-padded. Patient's prepped and draped in normal sterile fashion. Skin incision made midline. Wiltsie approach was used bilaterally. This was done at the L2 screws on the right side of the Wiltsie approach was brought down to the L2 screw as well as the L3 screw. The screw Was removed the josé was then cut above the L3 screw. In the L2 screw was then removed along with the josé. This was done on the left side as well. However the josé was cut above the L4 screw because an L3 screw was not present. The L2 screw was removed bilaterally. Next Wiltsie approach was done over the iliac screws as well. The screw was identified screw Was removed josé was cut and then the iliac screw was backed out this was done bilaterally as well. Wounds were irrigated closed in a layered fashion with Vicryl and Monocryl. Sterile dressings were applied patient transferred to the PACU in stable condition.
[2025-01-18] MEDS: fentaNYL 50 mcg/mL INJ 2mL IVP ×2 (09:11→09:16)
[2025-01-18] MEDS: HYDROmorphone 1 mg/mL INJ 1ml 0.5 MG IVP (09:30)
--- NOTE | 2025-01-18 09:47 | XR_ITS ---
WS: [id number] Lumbar spine, C-arm fluoroscopy views, 01/18/2025 Clinical Data: or pic, hardware removal Comparison: Lumbar spine, 11/30/2024 Findings: Dr. Puckett removed the superior posterior fusion hardware from the lumbar spine. XR/XR lumbar spine 1V [id number] Impression: Removal of a portion of the hardware for the posterior lumbar fusion.
[2025-01-18] MEDS: oxyCODONE 5 mg IR Tab/Cap PO (10:13)
--- NOTE | 2025-01-18 14:13 | ANE.PACU2 ---
Inpatient post-anesthesia follow up: Airway intact: Yes Vital signs: Temperature 98.2 F Pulse Rate 78 Respiratory Rate 17 Blood Pressure 138/92 Pulse Oximetry 94 Oxygen Delivery Me thod Room Air Oxygen Flow Rate Fraction of Inspir ed Oxygen Hydration adequate: Yes Nausea and vomiting: No Pain level: 3 Mental status: Baseline
== END 2025-01-18 10:48 | disposition home or self-care (01) ==
PROVIDERS: PCP Nurse Practitioner Family; Visit Provider Orthopaedic Surgery
PROC: (CPT 20680; principal; 2025-01-18 07:00)
DX: T84.84XA Pain due to internal orthopedic prosthetic devices, implants and grafts, initial encounter (principal); M51.369 Other intervertebral disc degeneration, lumbar region without mention of lumbar back pain or lower extremity pain; M48.062 Spinal stenosis, lumbar region with neurogenic claudication; Y79.3 Surgical instruments, materials and orthopedic devices (including sutures) associated with adverse incidents; Z79.899 Other long term (current) drug therapy; Z88.8 Allergy status to other drugs, medicaments and biological substances; Z87.891 Personal history of nicotine dependence; Z98.1 Arthrodesis status
CPT/HCPCS: 20680; 72020; 76000; J1100; J1171; J1885; J2704; J2710; J3010; J3370; J3490; J7030; J9999

== ENCOUNTER → 2025-02-02 13:04 | Outpatient (BNVA) | payer MEDICARE, SELFPAY | PROVIDERS: PCP Nurse Practitioner Family; Visit Provider Orthopaedic Surgery | DX: Z98.1 Arthrodesis status (principal) | CPT/HCPCS: 99024 ==

== ENCOUNTER → 2025-02-07 14:00 | Outpatient (BNVA) | payer MEDICARE, SELFPAY | PROVIDERS: PCP Nurse Practitioner Family; Visit Provider Podiatrist Foot & Ankle Surgery | DX: M79.672 Pain in left foot (principal); M76.72 Peroneal tendinitis, left leg; M77.52 Other enthesopathy of left foot and ankle; M21.622 Bunionette of left foot | CPT/HCPCS: 99213 ==

== ENCOUNTER → 2025-02-15 15:06 | Outpatient (BNVA) | payer MEDICARE, SELFPAY | PROVIDERS: PCP Nurse Practitioner Family; Visit Provider Specialist | DX: G43.011 Migraine without aura, intractable, with status migrainosus (principal); Z98.1 Arthrodesis status; G43.009 Migraine without aura, not intractable, without status migrainosus; G60.9 Hereditary and idiopathic neuropathy, unspecified | CPT/HCPCS: 99214 ==

== ENCOUNTER → 2025-02-21 10:42 | Outpatient (BNVA) | payer MEDICARE, SELFPAY | PROVIDERS: PCP Nurse Practitioner Family; Visit Provider Orthopaedic Surgery | DX: M54.9 Dorsalgia, unspecified (principal); Z48.89 Encounter for other specified surgical aftercare | CPT/HCPCS: 72100; 99024 ==

== ENCOUNTER 2025-03-07 10:17 | Outpatient (CLI) | payer MEDICARE, SELFPAY ==
--- NOTE | 2025-03-07 11:00 | MR_ITS ---
WS: [id number] MRI BRAIN WITHOUT CONTRAST HISTORY: G43.909 - Migraine, unspecified, not intractable, no visual changes. COMPARISON: None available. TECHNIQUE: Diffusion imaging, multiplanar T1, T2 and FLAIR imaging obtained. Quality is compromised by motion artifact. No evidence for acute infarct or hemorrhage. Amador-white matter differentiation is normal. Minimal small vessel ischemic changes in the supratentorial white matter. No prior infarct. No remote or acute infarcts are volume loss. Ventricles and extra-axial spaces are normal. No inferior displacement of cerebellar tonsils. The sella turcica and pituitary gland are unremarkable. Dural venous sinuses and [place] demonstrate no abnormality on this unenhanced studies. Paranasal sinuses: Clear. Mastoid air cells: Fluid in the LEFT mastoid air cells. Calvarium and scalp: Intact. MR/MR head wo con* [id number] IMPRESSION: 1. No acute infarct or hemorrhage. 2. No significant atrophy. 3. Minimal scattered T2 and FLAIR signal hyperintensities. These may be relate d to small vessel disease, migraines, hypertension or smoking. 4. No prior infarct.
--- NOTE | 2025-03-07 11:45 | MR_ITS ---
WS: [id number] MRI LUMBAR SPINE WITH AND WITHOUT CONTRAST HISTORY: Z98.1 - Arthrodesis status COMPARISON: 10/14/2022 TECHNIQUE: Sagittal and axial multisequence imaging is submitted. Cervical spine osteophytes encroach upon the ventral cord from C3-4 through C5- 6. Very slight concave deformity of several mid thoracic vertebral bodies from T4-T10. Posterior lumbar fusion on the RIGHT from L3-S1 and on the LEFT at L4-S1. Interbody spacers at L4-5 and L5-S1. Disc spaces are minimally desiccated. Postoperative edema in the subcu soft tissues posteriorly. Edema also at the laminectomy sites. Conus terminates normally at L1-2 disc level. L1-L2: Normal. L2-L3: Mild facet arthritis. No stenosis. L3-L4: Large posterior laminectomy defect. Mild bilateral facet joint arthritis. No stenosis or disc protrusion. L4-L5: Large posterior laminectomy defect. Slight clumping of the nerve roots in the thecal sac. Bilateral facet joint arthropathy. No high-grade stenosis. L5-S1: Posterior laminectomy defect. Mild disc bulging with moderate facet arthritis. Moderate RIGHT and mild LEFT foraminal stenosis. On the postcontrast imaging there is enhancement in the paraspinal soft tissues beginning at the L1-2 disc level and extending inferiorly. There is epidural fluid extending over a length of 3.5 cm centered at L2. This epidural fluid does enhance. There is also more prominent soft tissue edema extending into the paravertebral soft tissues. Additional subcutaneous peripherally enhancing soft tissue fluid collections with the largest at the L2-3 level extending over a length of 4.0 cm and transversely by 2.8 cm. There is a smaller more inferior collection. MR/MR lumbar spine wo/w con [id number] IMPRESSION: 1. Enhancing epidural fluid at the L2 level. Patient's had recent hardware rem oval and this may be a postoperative collection. With the enhancement epidural abscess is not excluded. 2. There are additional subcutaneous peripherally enhancing fluid collections in the posterior lumbar region. Postoperative seromas versus subcutaneous absce sses. 3. There is soft tissue edema with enhancement in the paravertebral soft tissu es beginning at the L2 level extending inferiorly. Some of these changes may be due to the recent hardware removal. 4. Posterior lumbar fusion on the RIGHT from L3-S1 and on the LEFT at L4 S1. 5. No disc enhancement.
[2025-03-07] MEDS: gadobenate dimeglumine 20 mL vial IV (11:54)
== END 2025-03-07 10:18 | disposition home or self-care (01) ==
LOC: RAD 10:19
PROVIDERS: PCP Nurse Practitioner Family; Visit Provider Specialist
DX: G43.909 Migraine, unspecified, not intractable, without status migrainosus (principal); Z98.1 Arthrodesis status; G43.009 Migraine without aura, not intractable, without status migrainosus; R93.89 Abnormal findings on diagnostic imaging of other specified body structures; M25.78 Osteophyte, vertebrae; R60.0 Localized edema; M47.896 Other spondylosis, lumbar region; M96.89 Other intraoperative and postprocedural complications and disorders of the musculoskeletal system; M51.379 Other intervertebral disc degeneration, lumbosacral region without mention of lumbar back pain or lower extremity pain; M47.897 Other spondylosis, lumbosacral region; M48.07 Spinal stenosis, lumbosacral region; H74.8X2 Other specified disorders of left middle ear and mastoid
CPT/HCPCS: 70551; 72100; 72158; 99024

== ENCOUNTER → 2025-03-09 12:25 | Outpatient (BNVA) | payer MEDICARE, SELFPAY | PROVIDERS: PCP Nurse Practitioner Family; Visit Provider Orthopaedic Surgery | DX: M54.9 Dorsalgia, unspecified (principal); Z98.1 Arthrodesis status | CPT/HCPCS: 99024 ==

== ENCOUNTER → 2025-03-27 12:55 | Outpatient (BNVA) | payer MEDICARE, SELFPAY | PROVIDERS: PCP Nurse Practitioner Family; Visit Provider Internal Medicine | DX: I47.10 Supraventricular tachycardia, unspecified (principal); R07.9 Chest pain, unspecified | CPT/HCPCS: 99214 ==

== ENCOUNTER → 2025-04-12 09:05 | Outpatient (BNVA) | payer MEDICARE, SELFPAY | PROVIDERS: PCP Nurse Practitioner Family; Visit Provider Specialist | DX: G43.011 Migraine without aura, intractable, with status migrainosus (principal); Z98.1 Arthrodesis status; G60.9 Hereditary and idiopathic neuropathy, unspecified | CPT/HCPCS: 99214 ==

== ENCOUNTER 2025-05-01 14:18 | Outpatient (CLI) | payer MEDICARE, SELFPAY ==
--- NOTE | 2025-05-01 15:00 | USCV_ITS ---
Princess Tobar Age: 50 Gender: F : 1975 Exam Date: 05/01/2025 14:58 Ordering Phys: Maurice James M.D ([email or web address]) Technologist: HARLAN Exam Location: [facility] – [place] Indication: CP, SoB BP: 132 / 69 HR: 75 Rhythm: Sinus Technical Quality: Adequate MEASUREMENTS (Male / Female) Normal Values 2D ECHO LV Diastolic Diameter PLAX 5.0 cm 4.2 - 5.9 / 3.9 - 5.3 cm IVS Diastolic Thickness 0.8 cm 0.6 - 1.0 / 0.6 - 0.9 cm IVS Systolic Thickness 1.4 cm LVPW Diastolic Thickness 0.9 cm 0.6 - 1.0 / 0.6 - 0.9 cm LVPW Systolic Thickness 1.4 cm LVOT Diameter 2.0 cm LV Ejection Fraction 2D Teich 64.3 % LV Ejection Fraction MOD 4C 51.1 % LV Ejection Fraction MOD 2C 50.1 % LV Ejection Fraction 2C AL 47.7 % LA Diameter 2.8 cm RA Systolic Volume 4C AL 32.7 ml RA Systolic Volume 4C MOD 29.6 ml LA Sys Volume AL 39.1 cm cubed LA Sys Volume Index AL 17.8 cm cubed/m squared IVC Diameter 1.4 cm M-MODE LA Ao Ratio MM 1.5 AV Cusp Separation MM 1.7 cm DOPPLER AV Peak Velocity 142.0 cm/s LVOT Peak Velocity 113.0 cm/s AV Area Cont Eq vti 2.4 cm squared AV Area Cont Eq pk 2.4 cm squared MV Peak Velocity 111.0 cm/s MV Area PHT 4.3 cm squared Mitral E to A Ratio 1.1 TR Peak Velocity 101.0 cm/s TR Peak Gradient 4.1 mmHg TV Peak E Velocity 82.0 cm/s PV Peak Velocity 98.0 cm/s FINDINGS Left Ventricle Normal left ventricular size, systolic function and wall thickness, with no regional wall motion abnormalities. Left ventricular ejection fraction is estimated at 60 %. Normal diastolic function. Right Ventricle The right ventricle is normal in size and function. Right Atrium The right atrium is normal in size. Left Atrium The left atrium is normal in size. Mitral Valve Structurally normal mitral valve without significant stenosis or prolapse. There is no mitral regurgitation. Aortic Valve Mild aortic valve calcification. No aortic valve stenosis. Trace aortic valve regurgitation. Tricuspid Valve Structurally normal tricuspid valve without significant stenosis or regurgitation. Pulmonary artery systolic pressure is normal. Pulmonic Valve Structurally normal pulmonic valve without significant stenosis. There is no pulmonic regurgitation. Pericardium Normal pericardium without effusion. Aorta Normal ascending aorta dimension. IVC The inferior vena cava appears normal. CONCLUSIONS Normal left ventricular size, systolic function and wall thickness, with no regional wall motion abnormalities. Left ventricular ejection fraction is estimated at 60 %. Normal diastolic function. There is no pericardial effusion. No significant valve abnormalities. Right atrial pressure is around 5 mm of mercury. Laura Montano MD (Electronically Signed) Final Date: 03 May 2025 14:00 S
== END 2025-05-01 14:19 | disposition home or self-care (01) ==
LOC: RAD 14:21
PROVIDERS: PCP Nurse Practitioner Family; Visit Provider Internal Medicine
DX: R06.02 Shortness of breath (principal); R07.9 Chest pain, unspecified
CPT/HCPCS: 93306

== ENCOUNTER → 2025-05-18 15:36 | Outpatient (BNVA) | payer MEDICARE, SELFPAY | PROVIDERS: PCP Nurse Practitioner Family; Visit Provider Orthopaedic Surgery | DX: M48.062 Spinal stenosis, lumbar region with neurogenic claudication (principal); Z01.818 Encounter for other preprocedural examination; Z98.890 Other specified postprocedural states | CPT/HCPCS: 72100; 99213 ==

== ENCOUNTER → 2025-07-06 08:24 | Outpatient (BNVA) | payer MEDICARE, SELFPAY | PROVIDERS: PCP Nurse Practitioner Family; Visit Provider Orthopaedic Surgery | DX: Z01.818 Encounter for other preprocedural examination (principal); T84.84XA Pain due to internal orthopedic prosthetic devices, implants and grafts, initial encounter; M48.062 Spinal stenosis, lumbar region with neurogenic claudication; Z98.1 Arthrodesis status | CPT/HCPCS: 36415; 72100; 80053; 81001; 85025; 99214 ==

== ENCOUNTER → 2025-08-14 09:19 | Outpatient (BNVA) | payer MEDICARE, SELFPAY | PROVIDERS: PCP Nurse Practitioner Family; Visit Provider Podiatrist Foot & Ankle Surgery | DX: M76.72 Peroneal tendinitis, left leg (principal); M77.52 Other enthesopathy of left foot and ankle; M21.622 Bunionette of left foot | CPT/HCPCS: 99213 ==

== ENCOUNTER → 2025-09-18 13:02 | Outpatient (BNVA) | payer MEDICARE, SELFPAY | PROVIDERS: PCP Nurse Practitioner Family; Visit Provider Internal Medicine | DX: I47.10 Supraventricular tachycardia, unspecified (principal); R07.9 Chest pain, unspecified; Z87.891 Personal history of nicotine dependence | CPT/HCPCS: 99214 ==

== ENCOUNTER 2025-09-25 09:23 | Outpatient (CLI) | payer MEDICARE, SELFPAY ==
[2025-09-25 09:50] VITALS: BMI 37.5
--- NOTE | 2025-09-25 09:50 | ECG_ITS ---
[facility] 2025-[facility]-25 Pat Name: Princess Tobar Department: Room: Gender: Female Children'S Author: : 1975 Requested By: Maurice James Order Number: [id number] Reading MD: BLAYNE DOMINGUEZ Interpretive Statements Lung unchanged pre/post procedure; Intraprocedure shortess of breath; Symptoms resoled by discharge NOTE: Please note that this is the electrocardiogram portion of the Lexiscan/Sestamibi stress test. The perfusion scan will be documented separately. DATA: Baseline heart rate was 83 beats per minute. Baseline blood pressure was 125/75 millimeters of mercury. Target heart rate was 170. Maximum heart rate achieved was 120. which was 70 % of the predicted target heart rate. Maximum blood pressure was 144/75 millimeters of mercury. The reason for ending the test was completion of the protocol. The patient did not experience any symptoms. ELECTROCARDIOGRAM: BASELINE: Sinus rhythm. Normal axis. Otherwise, no ST-T changes suggestive of ischemia noted. No arrhythmia noted. EXERCISE: After Lexiscan injection, no ST-T changes suggestive of ischemic noted. No arrhythmia noted. CONCLUSION: Please note due to baseline abnormality of the EKG specificity and sensitivity of the EKG portion of LexiScan MIBI stress test will be low 1. EKG not suggestive of ischemia 2. Lexiscan injection unremarkable. 3. Perfusion scan will be documented separately. Electronically Signed On 10-05-2025 17:04:20 PANTS PRESSER by BLAYNE DOMINGUEZ [email or web address] [id number]
--- NOTE | 2025-09-25 09:51 | NMCV_ITS ---
NM faith perf SPECT r/s* [id number] Princess Tobar Age: 50 Gender: F : 1975 Exam Date: 09/25/2025 10:30 Ordering Phys: Maurice James M.D ([email or web address]) Technologist: KEVIN Joel Exam Location: [facility] Indications: cp STRESS TEST Please see separate stress test report in [facility] for full findings IMAGE PROTOCOL Rest/Stress 1 Lexiscan Day Radiopharmaceutical Dose (mCi) Administration Site Administered by Rest: Tc-99m 10.6 IV KEVIN Joel Sestamibi Stress:Tc-99m 33 IV Mariia Tyson, [employer]PER[employer] Sestamibi Rest: 25-Sep-2025 60 Discovery 630 Stress: 25-Sep-2025 30 Discovery 630 0.4mg Lexiscan. Images obtained in supine and prone position. SPECT RESULTS Technical Quality: Good Raw Data Analysis: Normal Image Corrections: No attenuation or motion correction applied Summed Stress Score: 7 Summed Rest Score: 5 Summed Difference Score: 2 PERFUSION FINDINGS Large area of fixed perfusion defect noted in basal to distal inferior wall surrounded by small to medium sized area of moderate reversibility suggestive of possible lesion in the RCA territory. FUNCTIONAL RESULTS (calculated via Gated SPECT) Stress Image LV EF (%): 83 Stress EDV (mL):75 TID: 0.92 Stress ESV (mL):13 FUNCTIONAL FINDINGS: There appeared to be inferior wall hypokinesis IMPRESSIONS Large area of old myocardial infarction surrounded by a small to medium sized area of moderate ischemia noted in paris-infarct territory present in the basal to distal inferior wall suggestive of possible lesion in RCA. Laura Montano MD (Electronically Signed) Final Date: 25 September 2025 12:51 S
[2025-09-25 11:22] VITALS: BP 127/73; PULSE 97
== END 2025-09-25 09:24 | disposition home or self-care (01) ==
PROVIDERS: PCP Nurse Practitioner Family; Visit Provider Internal Medicine
DX: R07.9 Chest pain, unspecified (principal); R06.02 Shortness of breath; R93.1 Abnormal findings on diagnostic imaging of heart and coronary circulation
CPT/HCPCS: 36415; 78452; 93017; 96374; A9500; J2785